=== PATIENT | female | born 1945 | race Caucasian/White ===

== ENCOUNTER 2016-07-14 13:13 | Emergency (ER) | payer OTHER ==
--- NOTE | 2016-07-14 15:03 | PROVIDER DOCUMENTATION ---
HPI-Musculoskeletal Pain/Inj - GENERAL Source: patient - HX OF PRESENT ILLNESS-MUSKULOSKELTAL Quality of Pain: reports: aching Severity in ED: mild Onset/Duration: 4 days ago Timing: still present, intermittent Modifying Factors: improves with: nothing Any recent injury?: No Locality of Occurance: Home Similar Symptoms Previously?: Yes Recently seen or treated by another doctor?: No - FALL INJURY Location of Pain/Injury: reports: none - BACK & NECK PAIN/INJURY Back/Neck Pain Location: reports: C-spine Back/Neck Pain Radiation: denies: headache, shoulders, arm(s), Buttocks, Upper Legs, Lower Legs, Feet Context / Method of Injury: reports: unknown Associated Symptoms: reports: denies symptoms History of Chronic Neck or Back Pain?: Yes (chronic neck pain ) <Alma Kaiser - Last Filed: 07/14/16 14:59> <James Stahl - Last Filed: 07/14/16 15:26> - GENERAL Chief Complaint: Neck Pain Stated Complaint: NECK PAIN Time Seen by Provider: 07/14/16 14:10 - HX OF PRESENT ILLNESS-MUSKULOSKELTAL Nature of Presenting Problem: Pt is 70 y/o F presents to the ED with neck pain. Pt states the pain is chronic. Pt states pain worsened 4 days ago. Pt denies injury or trauma. (Alma Kaiser) Review of Systems - Adult - REVIEW OF SYSTEMS - ADULT Constitutional: denies: chills, fever Eyes: denies: blurred vision, double vision Ears, Nose, Mouth & Throat: denies: ear pain, nose pain, throat pain Cardiovascular: reports: irregular heart rate (tachy). denies: chest pain, heart murmur Respiratory: denies: cough, shortness of breath, wheezing Gastrointestinal: denies: abdominal pain, diarrhea, nausea, vomiting Genitourinary: denies: dysuria, hematuria Musculoskeletal: reports: neck pain. denies: bone pain, joint pain Integumentary: denies: hives, itching Neurological: denies: dizziness/vertigo, headache/migraines Psychiatric: reports: no symptoms reported Endocrine: reports: no symptoms reported Hematologic/Lymphatic: reports: no symptoms reported Allergic/Immunologic: reports: no symptoms reported All Other Systems: Reviewed and Negative <Alma Kaiser - Last Filed: 07/14/16 14:59> Past History - Adult - PAST MEDICAL HISTORY-ADULT Review of Records: reports: Nursing Assessment Review, Medications Reviewed, Social history reviewed & non-contributory. Major Childhood Illnesses: reports: denies history Cardiovascular: reports: HTN, hyperlipidemia Respiratory: reports: COPD Gastrointestinal: reports: denies history Obstetrical/Gynecological: reports: denies history Genitourinary: reports: denies history Musculoskeletal: reports: denies history Neurological: reports: denies history Endocrine/Immune: reports: Diabetes Other Conditions: reports: denies history - PRIOR SURGERIES/PROCEDURES Surgical/Procedure History: reports: tonsillectomy - IMMUNIZATION STATUS Childhood Immunizations: See Nurse Assessment Flu Vaccine: See Nurse Assessment - FAMILY HISTORY Family History: reviewed, not pertinent - SOCIAL HISTORY Smoking: quit less than 1 year, cigarettes Substance Use: denies Living Situation: family <Alma Kaiser - Last Filed: 07/14/16 14:59> Physical Exam-Injury Related - Physical Exam-Injury Related Initial Vital Signs Reviewed: Yes General Appearance: appears well, alert, no apparent distress Eyes: PERRL/EOMI, pink conjunctivae, fundi clear, no AV nicking Head, Ears, Nose, Mouth & Throat: normocephalic/atraumatic, moist mucous membranes, normal ENT inspection, TMs normal, pharynx normal Neck: full range of motion, supple, normal inspection, tender lateral Respiratory: chest non-tender, lungs clear, normal breath sounds, no pleuratic chest pain, no respiratory distress, no accessory muscle use Cardiovascular: normal peripheral pulses, no edema, no gallop, no JVD, no murmur , tachycardia Abdominal Exam: normal bowel sounds, non tender, soft, no organomegaly, no pulsatile mass Lymphatic: no adenopathy Back Exam: normal inspection, no CVA tenderness, no vertebral tenderness Extremity: normal range of motion, non-tender, normal gait, normal inspection, no pedal edema Integumentary: normal color, warm/dry 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, grossly normal, no motor/sensory deficits Psych/Mental Status: normal mood/affect, normal thought content, normal thought process, oriented x 3 <Alma Kaiser - Last Filed: 07/14/16 14:59> Progress <Alma Kaiser - Last Filed: 07/14/16 14:59> <James Stahl - Last Filed: 07/14/16 15:26> - PLAN OF CARE/RESULTS Progress/Plan/Lab Results: Vital Signs - 24 hr 07/14/16 13:18 Temperature 97.9 F Pulse Rate 106 H Respiratory 18 Rate Blood Pressure 152/88 O2 Sat by Pulse 98 Oximetry (Alma Kaiser) Departure <Alma Kaiser - Last Filed: 07/14/16 14:59> - Departure Time of Disposition Order: 15:25 Certified Medical Emergency: Urgent <James Stahl - Last Filed: 07/14/16 15:26> - Departure DIAGNOSIS: Neck muscle spasm, Fibromyalgia Disposition: HOME 01 Condition: Good Additional Instructions: Continue taking your current medications. Follow up with your primary care provider. ED Follow Up Instructions: You have been treated by a care provider in the Emergency Department. These instructions are being provided to you so you can have an understanding of how to care for yourself upon discharge. Upon discharge from the Emergency Department, you are responsible for making arrangements for follow-up care by a physician of your choice. Take all prescribed medications as directed. Return to the Emergency Department immediately for any new or worsening symptoms. You may call the Physician Referral phone number at [phone] to obtain a list of Physicians who are taking new patients. Referrals: Terrence Amos MD [Primary Care Provider] - Attestation - Scribe Verification/Attestation Scribe:: Alma Kaiser Acting as Scribe for:: James Stahl Scribe documention review:: This chart was documented by a scribe and accurately reflects the service the provider performed and the decisions made by the provider. <Alma Kaiser - Last Filed: 07/14/16 14:59> - Physician/ JACINTO Attestation Patient care was provided by Advanced Practice Provider:: Yes Advanced Practice Provider:: James Stahl Advanced Practice Provider documentation review:: The Mid-level provider documentation, treatment plan and medical decision making was reviewed by the physician who agrees with all treatment and medical decision making by the P. <James Stahl - Last Filed: 07/14/16 15:26> Physician Attestation
[2016-07-14] MEDS ORDERED: MORPHINE IM ONE (15:23)
[2016-07-14] MEDS ORDERED: ZOFRAN IM ONE (15:23)
[2016-07-14] MEDS ORDERED: NORFLEX IM ONE (15:23)
[2016-07-14 15:33] VITALS: BP 147/90
== END 2016-07-14 16:10 | disposition home or self-care (01) ==
LOC: P.ED 13:13
DX: M62.838 Other muscle spasm (principal); M79.7 Fibromyalgia; M54.2 Cervicalgia; R00.0 Tachycardia, unspecified; I10 Essential (primary) hypertension; E78.5 Hyperlipidemia, unspecified; J44.9 Chronic obstructive pulmonary disease, unspecified; E11.8 Type 2 diabetes mellitus with unspecified complications; Z87.891 Personal history of nicotine dependence
CPT/HCPCS: 96372; J2270; J2360; J2405

== ENCOUNTER 2019-02-23 08:49 | Inpatient (IN) ==
[2019-02-23] MEDS ORDERED: APRESOLINE IV ONE ×2 (09:12→11:18)
[2019-02-23] MEDS ORDERED: DILAUDID IV ONE ×2 (09:12→13:19)
[2019-02-23] MEDS ORDERED: ZOFRAN IV ONE (09:12)
[2019-02-23 09:17] LABS: BASO# 0.05 X1000 (0.0-0.2); BASO% 0.5 % (0.0-0.8); EOS# 0.03 X1000 (0.0-0.7); EOS% 0.3 % (0.0-10.0); HEMATOCRIT 50.2 % (37.0-47.0); HEMOGLOBIN 17.4 g/dL (12.0-16.0); IMM GRAN# 0.03 X1000 (0.0-0.04); IMM GRAN% 0.3 % (0.0-0.5); LYMPH# 2.64 X1000 (1.2-3.4); LYMPH% 24.4 % (20.5-51.1); MCH 30.4 PG (27-31); MCHC 34.7 g/dL (33-37); MCV 87.8 FL (81-99); MONO# 0.75 X1000 (0.11-0.59); MONO% 6.9 % (1.7-9.3); MPV 9.5 FL (7.4-10.4); NEUT# 7.32 X1000 (1.4-6.5); NEUT% 67.6 % (42.2-75.2); PLT 250 X1000 (130-400); RBC 5.72 XMIL (4.2-5.4); RDW 13.3 % (11.5-14.5); WBC 10.82 X1000 (4.8-10.8)
[2019-02-23 09:54] LABS: AGAP 14; ALBUMIN 4.9 g/dL (3.5-5.0); ALKALINE PHOSPHATASE 175 U/L (32-104); BUN 15 mg/dL (8-22); CALCIUM 10.8 mg/dL (8.8-10.2); CHLORIDE 93 mmol/L (98-107); COSMO 267; CREATININE 0.7 mg/dL (0.5-0.9); ESTIMATED GFR > 60; GLUCOSE 170 mg/dL (70-104); GOT 26 U/L (10-30); GPT 21 U/L (10-36); LIPASE 67 U/L (13-60); POTASSIUM 4.4 mmol/L (3.5-5.1); SODIUM 131 mmol/L (136-145); TCO2 24 mmol/L (25-35); TOTAL PROTEIN 9.7 g/dL (6.3-8.3)
[2019-02-23 10:11] LABS: BILIRUBIN URINE NEGATIVE (NEGATIVE); BLOOD URINE 1+ (NEGATIVE); CLARITY VERY CLOUDY (CLEAR); COLOR YELLOW; GLUCOSE URINE NEGATIVE (NEGATIVE); KETONE URINE 2+(Moderate) mg/dL (NEGATIVE); LEUKOCYTES URINE 1+ (NEGATIVE); NITRITE URINE NEGATIVE (NEGATIVE); PH URINE 6.5; PROTEIN URINE 2+(100 mg/dL) mg/dL (NEGATIVE); SP GRAVITY URINE 1.015; UROBILINOGEN URINE 1 mg/dL
[2019-02-23 10:28] LABS: URINE BACTERIA 1+ /HFP; URINE CAST GRANULAR PRESENT /LPF; URINE EPITHELIAL CELLS >10 /HPF (<10); URINE RBC <10 /HPF (<10); URINE SOURCE CATH
--- NOTE | 2019-02-23 11:18 | Diag Imaging Result Doc PS360 ---
EXAM: CT ABD/PELVIS W/IV CONT ONLY HISTORY: abdo pain TECHNIQUE: This exam was performed using automated exposure control, adjustment of mA or kV according to patient size, and/or use of iterative reconstruction technique. COMPARISON: 07/03/2013 FINDINGS: Lung bases: Unremarkable. Hepatobiliary: Normal liver attenuation. Marked gallbladder distention 8 x 5 cm. Is trace pericholecystic. Dilated extrahepatic bile duct to 1 cm. No intrahepatic biliary ductal dilatation is identified. Dilated pancreatic duct to 4.5 mm. No calcified gallstones are seen. There is abrupt termination of the dilated intrapancreatic common bile duct which may indicate a small pancreatic head mass or common duct stone. There is a stable 1.5 cm hypodensity right lobe liver. No suspicious liver masses are appreciated. Anterior upper abdominal wall mesh is noted and compatible with prior hernia repair. Adrenal glands/Spleen: Normal size and enhancement. No cysts or solid masses are appreciated. Kidneys: No nephrolithiasis or hydronephrosis is appreciated. Normal bilateral enhancement. Bilateral cortical cysts. No suspicious masses. Retroperitoneum: Normal caliber aorta. Marked calcific atherosclerotic disease. No lymphadenopathy. Bowel/Mesentery: Normal caliber small and large bowel loops. No evidence for obstruction. No bowel wall thickening, pneumatosis, or inflammatory change. No mesenteric lymphadenopathy is appreciated. There is moderate colonic stool burden. Appendix: Normal. No evidence for acute appendicitis. No pneumoperitoneum is identified. No ascites is identified. Pelvis: Reproductive organs show no acute abnormality. Urinary bladder is unremarkable. No lymphadenopathy is identified. There are no inflammatory changes. There are postsurgical changes lumbar spine with transpedicular fusion L4/L5. No acute bony abnormality is demonstrated. IMPRESSION: 1.Markedly distended gallbladder with trace pericholecystic fluid. Dilated common bile duct and dilated pancreatic duct. Recommend abdominal ultrasound and MRCP if indicated. Possibilities include distal common bile duct or periampullary neoplasm. 2. Incidental findings as detailed above. Electronically signed by Genevieve Thomason 02/23/2019 11:15 AM
--- NOTE | 2019-02-23 12:22 | Diag Imaging Result Doc PS360 ---
EXAM: US GB < RUQ (LIMITED) HISTORY: abdo pain TECHNIQUE: Right upper quadrant ultrasound COMPARISON: CT performed earlier FINDINGS: Normal inferior vena cava. No abdominal aortic aneurysm. Nonspecific 1.7 cm complex nodule in the liver anteriorly. This is not identified on the recent CT. The common bile duct measures 9 mm. The gallbladder is overly distended measuring at least 5.5 x 11.8 cm. Increased renal echotexture to the right kidney. No hydronephrosis. No ascites in the right upper quadrant. Prominent pancreatic duct. No mass in the pancreatic head or body identified. The talus obscured. IMPRESSION: 1.Abnormal overly distended gallbladder 2.Increased renal echotexture which can be seen with medical renal disease 3.Nonspecific complex hepatic nodule Electronically signed by Tonny Schilling 02/23/2019 12:19 PM
[2019-02-23] MEDS ORDERED: ZOSYN 3.375 GM in NS 50 ML IV ONE (13:15)
--- NOTE | 2019-02-23 13:20 | PROVIDER DOCUMENTATION ---
This chart was entered by Terry Cao Scribe, acting as scribe for Pierre Zavala MD. HPI-Abdominal Pain/GI Problem - General Chief Complaint: N/V/D Stated Complaint: ABD PAIN Time Seen by Provider: 02/23/19 08:58 Source: patient Allergies/Adverse Reactions: Patient Allergies Allergy/AdvReac Type Severity Reaction Status Date / Time No Known Allergies Allergy Verified 02/23/19 10:40 Home Medications: Home Medication List Medication Instructions Recorded Confirmed Last Taken Type Amlodipine Besylate 10 mg PO DAILY 02/23/19 02/23/19 Unknown History Aspirin 1 tab PO DAILY 02/23/19 02/23/19 Unknown History Bimatoprost [Lumigan] 1 drp BOTH EYES HS 02/23/19 02/23/19 Unknown History Brimonidine 0.1% Ophth Soln 1 drp BOTH EYES TID 02/23/19 02/23/19 Unknown History [Alphagan P 0.1% Ophth Soln] Cyclobenzaprine [Flexeril] 1 tab PO HS 02/23/19 02/23/19 Unknown History Gabapentin 600 mg PO HS 02/23/19 02/23/19 Unknown History Hydrocodone/Acetaminophen [Stanchfield 1 tab PO DAILY PRN 02/23/19 02/23/19 Unknown History 7.5-325 Tablet] Metformin HCl 500 mg PO BID 02/23/19 02/23/19 Unknown History Pantoprazole Sodium 40 mg PO DAILY 02/23/19 02/23/19 Unknown History - History of Present Illness-ABD Nature of Presenting Problems: 73 yof presents to the ed with c/o abdominal pain. pt states the onset symptoms started before the 10th. pt states " i have no idea how thid startd i just bend over every morning " pt states " epigastric discomfort and some LQ abdominal pa in." pt states " i didn't go to my pcp because i didn't think it would get this worse." pt states " I haven't been able to sleep for the past 2 nights, it hurts to turn on my side and get out of bed." pt states " im having to urinate a lot." pt is poor historian. Abdominal Pain Onset Location: reports: LUQ, LLQ, epigastric Pain Radiation: reports: no radiation Quality of Pain: reports: aching Severity in ED: reports: moderate Onset/Duration: reports: 4 days ago Timing: reports: still present Activities at Onset: reports: light activity Exposure to sick contacts?: No Modifying Factors: worse with: movement, rest Associated Symptoms: denies: diarrhea, fever/chills, shortness of breath, vomiting Last BM: unsure Dark Stools Present?: reports: none noticed Rectal Bleeding: reports: none Rectal Pain: reports: none Emesis Description: reports: none Bruising or Bleeding Gums?: No Similar Symptoms Previously?: No Recently seen or treated by another doctor?: No Review of Systems - Adult - REVIEW OF SYSTEMS - ADULT Constitutional: denies: chills, fever Eyes: reports: no symptoms reported Ears, Nose, Mouth & Throat: reports: no symptoms reported Cardiovascular: reports: no symptoms reported Respiratory: denies: shortness of breath, wheezing Gastrointestinal: reports: see HPI, abdominal pain. denies: diarrhea, vomiting Genitourinary: reports: no symptoms reported Musculoskeletal: reports: no symptoms reported Integumentary: reports: no symptoms reported Neurological: denies: dizziness/vertigo, headache/migraines Psychiatric: reports: no symptoms reported Endocrine: reports: no symptoms reported Hematologic/Lymphatic: reports: no symptoms reported Allergic/Immunologic: reports: no symptoms reported All Other Systems: Reviewed and Negative Past History - Adult - PAST MEDICAL HISTORY-ADULT Review of Records: reports: Old Records Reviewed, Nursing Assessment Review, Medications Reviewed, Social history reviewed & non-contributory. Major Childhood Illnesses: reports: denies history Cardiovascular: reports: HTN, hyperlipidemia Respiratory: reports: COPD Gastrointestinal: reports: denies history Obstetrical/Gynecological: reports: denies history Genitourinary: reports: denies history Musculoskeletal: reports: denies history Neurological: reports: denies history Endocrine/Immune: reports: Diabetes Other Conditions: reports: denies history - PRIOR SURGERIES/PROCEDURES Surgical/Procedure History: reports: tonsillectomy - IMMUNIZATION STATUS Childhood Immunizations: See Nurse Assessment Flu Vaccine: See Nurse Assessment - FAMILY HISTORY Family History: reviewed, not pertinent - SOCIAL HISTORY Smoking: cigarettes, less than 1 pack/day Provider spent 3-5 mins advising pt. on dangers of tobacco.: Discussed manners to quit use, and f/u contacts for add'l counseling. Substance Use: denies Alcohol Use Frequency: never Living Situation: alone Physical Exam-General - PHYSICAL EXAM-ADULT Initial Vital Signs Reviewed: Yes - CONSTITUTIONAL General Appearance: appears well, alert, moderate distress, thin - EYES Eyes: PERRL/EOMI - HEAD, EARS, NOSE, MOUTH & THROAT HENMT: moist mucous membranes - NECK Neck: non-tender, full range of motion, supple, normal inspection - RESPIRATORY Respiratory: chest non-tender, lungs clear, normal breath sounds, no pleuratic chest pain, no respiratory distress, no accessory muscle use - CARDIOVASCULAR Cardiovascular: normal peripheral pulses, regular rate, rhythm, no edema, no gallop, no JVD, no murmur - CHEST (BREASTS) Chest/Breast: deferred - GASTROINTESTINAL (ABDOMEN) Abdominal Exam: normal bowel sounds, non tender, soft, no organomegaly, no pulsatile mass - GENITOURINARY Female Genitalia/Pelvic Exam: deferred Rectal Exam: deferred Hemoccult Exam: deferred - LYMPHATIC Lymphatic: no adenopathy - MUSCULOSKELETAL Back Exam: normal inspection, no CVA tenderness, no vertebral tenderness Extremity: normal range of motion, non-tender, normal gait, normal inspection, no pedal edema, no calf tenderness, normal capillary refill - SKIN Integumentary: normal color, normal turgor, warm/dry - NEUROLOGIC Neurologic: grossly normal, no motor/sensory deficits - PSYCHIATRIC Psych/Mental Status: normal mood/affect, normal thought content, normal thought process, oriented x 3, other (pt is poor historian.) Progress - PLAN OF CARE/RESULTS Progress/Plan/Lab Results: Vital Signs - 8 hr 02/23/19 08:51 Temperature 98.3 F Pulse Rate 86 Respiratory Rate 22 Blood Pressure 219/131 O2 Sat by Pulse Oximetry 98 Orders Category Date Time Status Saline Loc DIRECTED Care 02/23/19 09:05 Active NPO Diet 02/23/19 09:05 Active AMYLASE [CHEM] Stat Lab 02/23/19 09:05 Ordered CBC WITH ELECTRONIC DIFF [HEME] Stat Lab 02/23/19 09:05 Ordered COMPREHENSIVE METABOLIC PANEL [CHEM] Stat Lab 02/23/19 09:00 Ordered LIPASE [CHEM] Stat Lab 02/23/19 09:[address] W/POSS RFLX CULT [URINALYSIS] Stat Lab 02/23/19 09:05 Uncollected Result Diagrams: 02/23/19 09:00 02/23/19 09:00 - REASSESSMENT Reassessment #1 Time Reassessed: 10:42 (pt is in bed resting) - CT/MRI 1 CT Study: Abdomen, Pelvis Impression: See EMR Report (EXAM: CT ABD/PELVIS W/IV CONT ONLY HISTORY: abdo pain TECHNIQUE: This exam was performed using automated exposure control, adjustment of mA or kV according to patient size, and/or use of iterative reconstruction technique. COMPARISON: 07/03/2013 FINDINGS: Lung bases: Unremarkable. Hepatobiliary: Normal liver attenuation. Marked gallbladder distention 8 x 5 cm. Is trace pericholecystic. Dilated extrahepatic bile duct to 1 cm. No intrahepatic biliary ductal dilatation is identified. Dilated pancreatic duct to 4.5 mm. No calcified gallstones are seen. There is abrupt termination of the dilated intrapancreatic common bile duct which may indicate a small pancreatic head mass or common duct stone. There is a stable 1.5 cm hypodensity right lobe liver. No suspicious liver masses are appreciated. Anterior upper abdominal wall mesh is noted and compatible with prior hernia repair. Adrenal glands/Spleen: Normal size and enhancement. No cysts or solid masses are appreciated. Kidneys: No nephrolithiasis or hydronephrosis is appreciated. Normal bilateral enhancement. Bilateral cortical cysts. No suspicious masses. Retroperitoneum: Normal caliber aorta. Marked calcific atherosclerotic disease. No lymphadenopathy. Bowel/Mesentery: Normal caliber small and large bowel loops. No evidence for obstruction. No bowel wall thickening, pneumatosis, or inflammatory change. No mesenteric lymphadenopathy is appreciated. There is moderate colonic stool burden. Appendix: Normal. No evidence for acute appendicitis. No pneumoperitoneum is identified. No ascites is identified. Pelvis: Reproductive organs show no acute abnormality. Urinary bladder is unremarkable. No lymphadenopathy is identified. There are no inflammatory changes. There are postsurgical changes lumbar spine with transpedicular fusion L4/L5. No acute bony abnormality is demonstrated. IMPRESSION: 1.Markedly distended gallbladder with trace pericholecystic fluid. Dilated common bile duct and dilated pancreatic duct. Recommend abdominal ultrasound and MRCP if indicated. Possibilities include distal common bile duct or periampullary neoplasm. 2. Incidental findings as detailed above. Electronically signed by Genevieve Thomason 02/23/2019 11:15 AM 02/23/19 4773 Interpreting Physician: Genevieve Thomason MD Dictated Date/Time: 02/23/19 1100 cc: Pierre Zavala MD; None,PCP) - ULTRASOUND (By Radiology) 1 US Study: Abdomen Impression: See EMR Report (EXAM: US GB < RUQ (LIMITED) HISTORY: abdo pain TECHNIQUE: Right upper quadrant ultrasound COMPARISON: CT performed earlier FINDINGS: Normal inferior vena cava. No abdominal aortic aneurysm. Nonspecific 1.7 cm complex nodule in the liver anteriorly. This is not identified on the recent CT. The common bile duct measures 9 mm. The gallbladder is overly distended measuring at least 5.5 x 11.8 cm. Increased renal echotexture to the right kidney. No hydronephrosis. No ascites in the right upper quadrant. Prom inent pancreatic duct. No mass in the pancreatic head or body identified. The talus obscured. IMPRESSION: 1.Abnormal overly distended gallbladder 2.Increased renal echotexture which can be seen with medical renal disease 3.Nonspecific complex hepatic nodule Electronically signed by Tonny Schilling 02/23/2019 12:19 PM 02/23/19 1219 Interpreting Physician: Tonny Schilling MD Dictated Date/Time: 02/23/19 1216 cc: Pierre Zavala MD; None,PCP) - CONSULTS/PCP/HOSPITALIST Notification #1 *Consult/PCP/Hospitalist*: Dr Ojeda Time Discussed: 13:17 Reason/Comments: asked for hospitalist to admit Consult Disposition: Admit #2 Consult: [facility] [employer] [facility] for Hospitalist Time Discussed: 13:18 Consult Disposition: Will see in ED, Admit Departure - Departure Date of Disposition Decision: 02/23/19 Time of Disposition Decision: 13:18 DIAGNOSIS: Tobacco abuse disorder, Abdominal pain, Abnormal findings on diagnostic imaging of liver and biliary tract Disposition: ADMITTED INPATIENT 09 Certified Medical Emergency: Emergent Condition: Stable Referrals and Follow-Ups: None,PCP [Primary Care Provider] - - Critical Care Note This patient required my direct & personal management of CC.: No Attestation - Physician/ JACINTO Attestation Patient care was provided by Advanced Practice Provider:: No The physician spent face to face time with patient:: Yes Advanced Practice Provider documentation review:: Supervising physician onsite and consulted in the evaluation and care of this patient. The physician did have a face to face encounter with the patient. This chart was documented by the indicated scribe, (Terry Cao, Betoiblizzette) and accurately reflects the services I performed and decisions made by me, Pierre Zavala MD, as attested by the provider's signature.
[2019-02-23] MEDS ORDERED: DUONEB (A & A) INH PRN (14:04)
--- NOTE | 2019-02-23 14:48 | HISTORY AND PHYSICAL ---
CHIEF COMPLAINT: Right upper quadrant pain and nausea. HISTORY OF PRESENT ILLNESS: This is a 73-year-old female with a history of hepatitis C, COPD, diabetes mellitus, and hypertension. She presented to the emergency room complaining of 4 days of right upper quadrant pain with nausea. She denied any vomiting or diarrhea. She did state that the pain increased at night after eating a large meal. PAST MEDICAL HISTORY: 1. Hepatitis C, status post 1 month of Mavyret. 2. Chronic obstructive pulmonary disease. 3. Diabetes mellitus. 4. Hyperlipidemia. 5. Hypertension. 6. Glaucoma. PAST SURGICAL HISTORY: Tonsillectomy and hernia repair. SOCIAL HISTORY: She smokes. She denies any alcohol or illicit drug use. ALLERGIES: No documented allergies. HOME MEDICATIONS: A list will be obtained by the nursing staff. Once verified, we will review and restart as is appropriate. REVIEW OF SYSTEMS: Discussed with patient with pertinent positives as stated in the HPI. She denied any syncope, dizziness, chest pain, palpitations, any black or bloody vomitus or stools, shortness of breath, cough, fever, chills, any hematuria, dysuria, frequency, urgency. PHYSICAL EXAMINATION: GENERAL: This is a 73-year-old female who is lying on the stretcher in the emergency room, sedated after having Dilaudid, in no distress. VITAL SIGNS: Blood pressure is 135/83, with a heart rate of 108, respirations 16, temperature is 97.6 degrees, with O2 saturations 93 to 96 percent on 2 L nasal cannula. EYES: Pupils are equal, round, react to light. Surrounding skin and sclerae are red. HENT: Head is normocephalic, atraumatic. Mucous membranes are moist. NECK: Supple with trachea midline. CARDIOVASCULAR: Regular rate and rhythm. S1 and S2 are appreciated. No murmurs. She has no lower extremity edema. Peripheral pulses are palpable x4 extremities. PULMONARY: Breath sounds are clear with no increased work of breathing noted. Chest rises and falls symmetrically with respiration. GASTROINTESTINAL: Abdomen is soft, with generalized tenderness. Nondistended, with bowel sounds in all 4 quadrants. NEUROLOGIC: She is sedated after Dilaudid but she is oriented. SKIN: Warm and dry. LABORATORY DATA: WBC is 10.8, with hemoglobin 17.4, hematocrit 50.2, and platelets of 250,000. Sodium 131, potassium 4.4, BUN 15, creatinine 0.7, with a glucose of 170, calcium is 10.8. Lipase is 67. Urinalysis is consistent with contamination with greater than 10 epithelial cells, 10 to 20 microscopic white blood cells, 1+ bacteria. A CT of the abdomen and pelvis with IV contrast reveals a markedly distended gallbladder with trace pericholecystic fluid, dilated common bile duct and dilated pancreatic duct. Abdominal ultrasound was recommended with possibilities including distal common bile duct or periampullary neoplasm. Abdominal ultrasound, abnormally overdistended gallbladder, increased renal echotexture which can be seen with medical renal disease, nonspecific complex hepatic nodule. ASSESSMENT AND PLAN: 1. Right upper quadrant pain. CT and ultrasound results as above. Dr. Layo Ojeda has been notified per the emergency room physician. nothing per oral Dilaudid for pain, and transfer her to [facility] to be followed by general surgery. 2. Nausea. Zofran. Nothing per oral. 3. History of chronic obstructive pulmonary disease. DuoNeb every 4 hours as needed for wheezing. 4. Diabetes mellitus. Pattern blood glucose with sliding scale insulin. 5. Hypertension. identify her home medications. 6. Elevated lipase. recheck amylase and lipase in the morning. 7. Glaucoma. continue her home medications. CBC with differential, CMP, amylase, and lipase in the morning. 9. Further treatments pending hospital course. Plan was discussed with Dr. Felton. Dictated by RAINE Odonnell for Rey Fleton MD cc: RAINE Odonnell MD [facility]
[2019-02-23] MEDS ORDERED: ALPHAGAN 0.2% OPHTH SOLN BOTH EYES SCH (17:00)
--- NOTE | 2019-02-23 17:04 | PROGRESS NOTE ---
DATE: 02/23/2019 SUBJECTIVE: The patient has no major complaints. She has no major issues. She complained with pain and hip pain and nausea, vomiting, and she has a diagnosis of hepatitis C, so she has been getting treatment with Dr. Jarrod hathaway for the active hepatitis C. Abdominal exam reveals right upper quadrant tenderness. IMAGING: Shows periampullary obstruction and large gallbladder with possible cholecystitis and then a distal enlarge dilated common bile duct. Ultrasound shows overly distended gallbladder, but it does not clearly talk about stones. PLAN: In any case she will be admitted for possible acute cholecystitis, although she may have obstruction. We will get a surgical consult, GI consult, antibiotics and follow clinically. Get a GI opinion as well because she may need an ERCP to better delineate her bile duct. cc: Rey Felton MD
[2019-02-23] MEDS: NS 1,000 ML IV SCH (18:23)
[2019-02-23] MEDS: DILAUDID IV PRN ×2 (18:23→23:42)
[2019-02-23] MEDS: HUMALOG (PARKWAY) SUBQ SCH (18:48)
--- NOTE | 2019-02-23 19:07 | PROGRESS NOTE ---
DATE: 02/23/2019 SUBJECTIVE: Ms. Irene is a 73-year-old, does not have primary care physician, has a history of hepatitis C, COPD, diabetes mellitus, hypertension, presented to the emergency room with a 4-day history, actually longer in retrospective, of epigastric pain shortly after eating but recently had right upper quadrant pain. Denied any vomiting or diarrhea. PAST MEDICAL HISTORY: 1. Hepatitis C. I think she is status post 1 month of Mavyret. 2. COPD. 3. Diabetes mellitus. 4. Hyperlipidemia. 5. Hypertension. 6. Glaucoma. PAST SURGICAL HISTORY: Tonsillectomy and hernia repair. IMAGING: CT and ultrasound over distended gallbladder, increase in echotexture and suspicion for cholecystitis was sent over to [facility]. Dr. Ojeda is evaluating. Ultrasound shows a very distended gallbladder and periampullary obstruction, large gallbladder, possible cholecystitis, distal large dilated common bile duct. REVIEW OF ORDERS: I do not see anything to modify. cc: Clark Nina MD
--- NOTE | 2019-02-23 20:09 | GENERAL SURGERY CONSULTATION ---
DATE: 02/23/2019 REASON FOR CONSULTATION: Gallstones, possible gallstone pancreatitis. CHIEF COMPLAINT: Abdominal pain. HISTORY OF PRESENT ILLNESS: A 73-year-old female multiple medical issues. She has had several days of abdominal discomfort in the setting of chronic pain. She has also undergone recently therapy for chronic hepatitis C overseen by Dr. Garay. She denies any jaundice. She has had some low-grade fevers associated nausea, vomiting, came the ER where imaging was obtained that showed a dilated gallbladder, prominent bile duct 9 mm and even a prominent pancreatic duct. There is no clear pancreatic mass noted on her CT scan that did have IV contrast. MEDICAL HISTORY: Includes hepatitis C, fibromyalgia, osteoporosis, hypertension, diabetes and tobacco abuse, diabetes and glaucoma. SURGICAL HISTORY: She has had a ventral hernia repair by Dr. Flores as well as numerous back operations starting at a very young age. SOCIAL HISTORY: Currently half pack a day previously heavier. No current alcohol. She does have a history of IV drug abuse in the past. REVIEW OF SYSTEMS: Ten point review of systems negative other than mentioned HPI. FAMILY HISTORY: Negative for GI malignancy. OBJECTIVE: She is afebrile. Pulse been low 100s, blood pressure 139/86, oxygen saturation 98%, she is 110 pounds, 5 foot 2.General: She is chronically ill-appearing female very thin. HEENT: No scleral icterus. No cervical mass. Cardiovascular: Normal rate. Pulmonary: No increased work of breathing. Abdomen: Soft but she is tender throughout her upper abdomen. There is upper midline incision with no palpable hernias. Psychiatric: She is anxious. Neurologic: Generalized weakness but no gross deficits. Lymphatic: No cervical, axillary, or inguinal adenopathy. Peripheral vascular: Well-perfused. LAB: White count 10, hematocrit is 50. Her creatinine 0.7, bilirubin is normal, AST, ALT are normal, alkaline phosphatase mildly elevated, lipase is mildly elevated at 67. Urinalysis does have some white blood cells but negative for nitrites. I reviewed her imaging both abdominal ultrasound, CT scan. ASSESSMENT AND PLAN: A 73-year-old female with apparent cholecystitis, possible distal bile duct obstruction although her liver function tests are normal. Given the findings and her symptoms and her history worried she could have passed a stone in the common duct and has some degree of acute or chronic cholecystitis. She also has some indication of pancreatitis. We will repeat her labs in the morning, have her tentatively posted . If her lipase has normalized with hydration then will proceed. Recommend keeping her NPO otherwise we may observe if her pancreatitis seems to be worsening. We discussed risk of bleeding, conversion to open which I think she is high risk for given the appearance of her gallbladder, previous upper midline incision, damage surrounding structures, need for further procedure. She understands all this and consents. Will keep her on Zosyn and NPO with IV fluids. cc: Bibi Ojeda MD
[2019-02-23] MEDS: ZOSYN 3.375 GM in NS 50 ML IV SCH (20:50)
[2019-02-23] MEDS ORDERED: LUMIGAN 0.01% OPH SOLUTION BOTH EYES SCH (21:00)
[2019-02-24] MEDS: ZOSYN 3.375 GM in NS 50 ML IV SCH ×4 (02:45→21:16)
[2019-02-24] MEDS: DILAUDID IV PRN ×5 (02:49→22:27)
[2019-02-24] MEDS: NS 1,000 ML IV SCH ×3 (02:53→18:23)
[2019-02-24] MEDS: HUMALOG (PARKWAY) SUBQ SCH (04:43)
[2019-02-24 07:07] LABS: BASO# 0.02 X1000 (0.0-0.2); BASO% 0.2 % (0.0-0.8); EOS# 0.01 X1000 (0.0-0.7); EOS% 0.1 % (0.0-10.0); HEMATOCRIT 46.4 % (37.0-47.0); HEMOGLOBIN 15.6 g/dL (12.0-16.0); IMM GRAN# 0.02 X1000 (0.0-0.04); IMM GRAN% 0.2 % (0.0-0.5); LYMPH# 2.52 X1000 (1.2-3.4); LYMPH% 19.2 % (20.5-51.1); MCH 30.8 PG (27-31); MCHC 33.6 g/dL (33-37); MCV 91.5 FL (81-99); MONO# 1.24 X1000 (0.11-0.59); MONO% 9.4 % (1.7-9.3); MPV 10.1 FL (7.4-10.4); NEUT# 9.34 X1000 (1.4-6.5); NEUT% 70.9 % (42.2-75.2); PLT 231 X1000 (130-400); RBC 5.07 XMIL (4.2-5.4); RDW 13.7 % (11.5-14.5); WBC 13.15 X1000 (4.8-10.8)
[2019-02-24 07:10] LABS: INR 1.14; PROTIME 14.8 Seconds (11.0-16.0); PTT 30.7 Seconds (22.3-41.8)
[2019-02-24 07:53] LABS: ALB/GLOB RATIO 1.2; CALCIUM 8.5 mg/dL (8.8-10.2); POTASSIUM 4.3 mmol/L (3.5-5.1); TOTAL BILIRUBIN 0.54 mg/dL (0.20-1.00); TOTAL PROTEIN 7.4 g/dL (6.3-8.3)
[2019-02-24] MEDS: HUMALOG SUBQ SCH ×4 (07:54→21:17)
[2019-02-24] MEDS: ALPHAGAN 0.2% OPHTH SOLN BOTH EYES SCH ×3 (08:24→18:02)
--- NOTE | 2019-02-24 09:01 | Diag Imaging Result Doc PS360 ---
EXAM: CHEST-1 VIEW 02/24/2019 HISTORY: positive sepsis screen TECHNIQUE: AP portable at 0849 COMMENT: There is blunting of the right costophrenic angle which was not the case on 09/11/2018. There is also thickening of the lateral inferior pleura on the right. The heart size and pulmonary vascularity are stable in appearance. IMPRESSION: Atelectasis versus pneumonia in the right base with pleural thickening versus loculated effusion on the right. Electronically signed by Cem Cox 02/24/2019 8:59 AM
--- NOTE | 2019-02-24 12:05 | PROGRESS NOTE ---
DATE: 02/24/2019 SUBJECTIVE: Patient has no major complaints, except pain. She has nausea. She is awake and alert. Her vitals triggered a sepsis protocol which she certainly could have sepsis related to her gallbladder distention. It is not clear she has cholelithiasis, but her gallbladder is extremely distended with some wall thickening and some pericholecystic fluid. She may have obstruction at the level of the neck of the gallbladder, possibly in the common bile duct. I think she will need an intraoperative cholangiogram. In any case patient is stabilized, and she will go. OBJECTIVE: Vital Signs: Blood pressure 175/80, heart rate 97, respiratory rate 20, temperature 98.1 degrees. Cardiovascular: Regular rate and rhythm. Pulmonary: Bilateral breath sounds. Clear to auscultation. GI: Soft. She is diffusely tender throughout her abdomen, no rebound or guarding, mostly in her right and then left upper quadrants. LABS: White count is up to 13, H and H 15 and 46, which is down from 17 and 50, platelets 231. BUN and creatinine 25 and 1, sugar 135, lipase up a little bit at 84. PROBLEM LIST: 1. Obstructive gallbladder with possible cholecystitis, possible choledocholithiasis. She is on antibiotics. Plan is for laparoscopic cholecystectomy today. She may need endoscopic retrograde cholangiopancreatography depending on intraoperative cholangiogram findings during surgery, which I anticipate is today. 2. Hepatitis C. She is on Mavyret and followed by Dr. Garay. I believe Gastroenterology has been consulted. She has seen Dr. Garay in the past. 3. Early sepsis. She has met sepsis protocol. She has gotten intravenous fluids. Heart rate appears to be stable. I do not think her lactate is elevated. I think when antibiotics and intraoperative cholangiogram is completed, she will be able to stabilize. 4. Hypertension is not completely controlled. We will need to reinitiate medications when stabilized. cc: Rey Felton MD
[2019-02-24] MEDS ORDERED: XYLOCAINE-MPF 2% ONE (14:03)
[2019-02-24] MEDS ORDERED: DIPRIVAN 1% ONE (14:03)
[2019-02-24] MEDS ORDERED: SENSORCAINE 0.5%-EPI 1:200,000 ONE (14:35)
[2019-02-24] MEDS ORDERED: SODIUM CHLORIDE 0.9% ONE (14:35)
[2019-02-24] MEDS ORDERED: LR 1,000 ML ONE (14:35)
[2019-02-24] MEDS ORDERED: FENTANYL ONE (15:24)
[2019-02-24] MEDS ORDERED: ZOFRAN ONE (15:36)
[2019-02-24] MEDS ORDERED: DECADRON ONE (15:36)
[2019-02-24] MEDS ORDERED: QUELICIN (DOSE) ONE (15:40)
[2019-02-24] MEDS ORDERED: STERILE WATER INJ. ONE (15:40)
[2019-02-24] MEDS ORDERED: NORCURON ONE (15:40)
[2019-02-24] MEDS ORDERED: LABETALOL (DOSE) IV ONE (17:00)
[2019-02-24] MEDS: MORPHINE ONE ×3 (17:13→17:25)
--- NOTE | 2019-02-24 17:49 | OPERATIVE NOTE ---
PROCEDURE DATE: 02/24/2019 SURGEON: Bibi Ojeda MD PREOPERATIVE DIAGNOSES: 1. Acute cholecystitis. 2. Possible gallstone pancreatitis. POSTOPERATIVE DIAGNOSES: 1. Acute cholecystitis. 2. Possible gallstone pancreatitis. 3. Cirrhosis. PROCEDURES PERFORMED: Laparoscopic cholecystectomy. ESTIMATED BLOOD LOSS: 500 mL. SPECIMENS: Gallbladder. DRAINS: Vitor. ANESTHESIA: General. INDICATION: This is a female who presented with epigastric abdominal discomfort. She has a history of hepatitis C, undergoing therapy for that, and a mildly elevated lipase. She had a dilated common bile duct. FINDINGS: There were nodular sclerotic changes to her liver. It was very enlarged. She had left lateral segment adhesions up to the previous midline mesh. She had a markedly distended gallbladder with thickened peritoneum overlying and purulent bile within. The cystic duct was foreshortened and closely abutted the common bile duct. OPERATIVE NOTE: Risks, benefits, and alternatives were discussed with the patient and she consented to the procedure, seen preoperatively. Surgical site was confirmed. She was taken to the operating room and placed in supine position. General anesthesia was induced without complication. All bony prominences were padded. Abdomen was prepped with chlorhexidine solution and draped in the usual fashion. After time-out, we made an midclavicular right upper quadrant incision, carrying it down through the muscle and fascia as this was away from her previous midline scar with known mesh. We entered the abdomen in an open controlled fashion, placed in a Kinza trocar. We then were able to place a 5 mm trocar right laterally and took down some omental adhesions up to the mesh using a LigaSure device. We then were able to place a 5 mm trocar in the supraumbilical location, an 11 mm trocar in the infraumbilical location, and then ultimately added another 5 mm trocar in the left upper quadrant. The left lateral segment of the liver prohibited our access to the gallbladder, but we were able to decompress the gallbladder, retract it cephalad, and start laterally progressing medially. We stripped down the peritoneum overlying the infundibulocystic junction. We could visualize the common bile duct. It was prominent. It was medial, but the cystic duct was furled on this but we were able to retract this down to the right, it safely, but due to the distortion and our unusual port placement, we were unable to perform a cholangiogram. As such, we will follow her LFTs and MRCP if indicated. We were able to establish a critical view. We did divide some branches off the cystic artery with the LigaSure device. The gallbladder was very friable. There was significant venous bleeding noted just from small veins consistent with portal hypertension, but we were able to triply clipped the cystic duct and divide it. We then began removing the gallbladder from the gallbladder fossa using a combination of blunt dissection and LigaSure dissection, protecting the liver itself, and the gallbladder was removed. There was an opening made in the top. There was some spillage of bile, but no stones. Placed it in an Endo Catch bag. We then copiously irrigated the abdomen. There were some venous branches bleeding from the bed of the liver itself, up well onto the dome portion of the gallbladder fossa, but through clips and hemostatic agents, we were able to obtain hemostasis. We irrigated copiously with a couple liters of fluid and placed a Vitor drain in the gallbladder fossa, brought it out through a lateral incision, and then suctioned all the remaining fluid. The remaining trocars were removed. The gallbladder was brought out through the umbilical incision which did have to be made larger to allow admittance, and we closed the fascia at all of the larger trocar sites with 0 Vicryl sutures. Skin was closed surgical clips. Dressing was applied. She was awoken and transferred to Recovery. I spoke with the family. cc: Bibi Ojeda MD
[2019-02-24] MEDS: LUMIGAN 0.01% OPH SOLUTION BOTH EYES SCH (21:19)
[2019-02-25] MEDS: PERIDEX MT SCH ×3 (01:00→21:21)
[2019-02-25] MEDS: ZOSYN 3.375 GM in NS 50 ML IV SCH ×4 (01:46→21:21)
[2019-02-25] MEDS: NS 1,000 ML IV SCH ×4 (04:27→21:22)
[2019-02-25] MEDS: DILAUDID IV PRN ×5 (04:32→17:56)
[2019-02-25 06:38] LABS: BASO# 0.01 X1000 (0.0-0.2); BASO% 0.1 % (0.0-0.8); HEMATOCRIT 36.4 % (37.0-47.0); IMM GRAN# 0.05 X1000 (0.0-0.04); IMM GRAN% 0.3 % (0.0-0.5); LYMPH% 9.5 % (20.5-51.1); MCV 94.1 FL (81-99); MONO# 1.35 X1000 (0.11-0.59); MONO% 7.1 % (1.7-9.3); MPV 9.9 FL (7.4-10.4); PLT 177 X1000 (130-400); RBC 3.87 XMIL (4.2-5.4); RDW 13.7 % (11.5-14.5); WBC 19.01 X1000 (4.8-10.8)
[2019-02-25] MEDS: HUMALOG SUBQ SCH ×4 (06:48→21:21)
[2019-02-25 07:22] LABS: ALB/GLOB RATIO 0.9; ALBUMIN 3.1 g/dL (3.5-5.0); DIRECT BILIRUBIN 0.2 mg/dL (0.00-0.20); TOTAL BILIRUBIN 0.47 mg/dL (0.20-1.00); TOTAL PROTEIN 6.5 g/dL (6.3-8.3)
[2019-02-25 07:24] LABS: AGAP 11; BUN 22 mg/dL (8-22); CALCIUM 7.7 mg/dL (8.8-10.2); CHLORIDE 106 mmol/L (98-107); COSMO 286; CREATININE 0.7 mg/dL (0.5-0.9); ESTIMATED GFR > 60; GLUCOSE 162 mg/dL (70-104); POTASSIUM 3.9 mmol/L (3.5-5.1); SODIUM 140 mmol/L (136-145); TCO2 23 mmol/L (25-35)
[2019-02-25] MEDS: ALPHAGAN 0.2% OPHTH SOLN BOTH EYES SCH ×3 (08:02→17:56)
--- NOTE | 2019-02-25 11:59 | Diag Imaging Result Doc PS360 ---
EXAM: MRI ABDOMEN W/WO CONTRAST 02/25/2019 HISTORY: rule out choledoch TECHNIQUE: Axial T2, water 3-D, in and out of phase T1 3-D, 3-D axial lava postcontrast and coronal T2 and water 3-D. COMMENT: The common bile duct and common hepatic duct are distended, the former measuring in excess of 12 mm in diameter. This changes to a string-like lumen abruptly at the last 12 mm or so, which was also the case on the CT of 02/23/2019. There is some slightly heterogeneous fluid seen in the right subphrenic space adjacent to the liver. The liver is markedly nodular in appearance consistent with cirrhosis. The pancreatic duct is slightly distended to over 3 mm. IMPRESSION: 1. 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 2. Heterogeneous free fluid in the subphrenic space. 3. Cirrhosis. Electronically signed by Cem Cox 02/25/2019 11:56 AM
--- NOTE | 2019-02-25 12:41 | GASTROENTEROLOGY CONSULTATION ---
DATE: 02/25/2019 REASON FOR CONSULT: Cholelithiasis. HISTORY OF PRESENT ILLNESS: Ms. Irene is a 73-year-old, female with a history of hepatitis C cirrhosis, COPD, diabetes, and hypertension, who presented to the ER complaining that she was having a right upper quadrant pain with nausea which has been going on for the last 4 days. She said that it all started on Saturday when she got up to check her blood sugars. She lost her balance in the bathroom and when she was trying to waste picker things which was underneath the cabinet, she felt like she had busted something and that brought her to the ER.She denied any vomiting or diarrhea and her pain increased after she ate. She had a cholecystectomy done yesterday. PAST MEDICAL HISTORY: Hepatitis C cirrhosi, COPD, diabetes, hyperlipidemia, hypertension, glaucoma. PAST SURGICAL HISTORY: Tonsillectomy and hernia repair. SOCIAL HISTORY: She is a smoker. Lives with her son. Denies any alcohol or illicit drugs. ALLERGIES: No known drug allergies. HOME MEDICATIONS: She takes amlodipine 5 mg 2 tablets daily, Flexeril 10 mg 1 tablet at bedtime, gabapentin 600 mg at bedtime, brimonidine 0.1% ophthalmic solution 1 drop in both eyes 3 times a day, Protonix 40 mg daily, aspirin 325 mg 1 tablet daily, metformin 500 mg twice a day, Lumigan 2.5 mm 1 drop in both eyes at bedtime, and Bushnell 7.5/325 mg 1 tablet daily p.r.n. FAMILY HISTORY: No significant GI malignancies. REVIEW OF SYSTEMS: As per HPI. Otherwise, a 12-point review of systems is negative. PHYSICAL EXAMINATION: Vital Signs: Temperature 98.9, pulse is 100, respirations 18, blood pressure 129/73, oxygen saturation is 92% on room air. Her weight is 109.5 pounds. BMI is 20.1 kg/m2. General: She is alert, oriented x3, lying in bed, complaining of abdominal pain. HEENT: Pale conjunctivae. No icterus. PERRL. Neck: Supple. Lungs: Clear to auscultation in anterior and posterior pope. Cardiovascular: Regular rate and rhythm. No murmurs, rubs, or gallops heard on auscultation. Abdomen: Soft, tender, distended. She has a midline incision, on the right quadrant and in the lower quadrant. She has a ÓSCAR drain. Active bowel sounds heard in all 4 quadrants. Extremities: No cyanosis, clubbing, or edema. Pedal pulses 2+ present. Neurological: Alert, oriented x3. Nonfocal. Cranial nerves 2-12 grossly intact. LABS: WBCs 19.01, RBCs 3.87, hemoglobin 12.0, hematocrit is 36.4, platelet count is 177,000. Sodium is 140, potassium is 3.9, chloride 106, carbon dioxide 23, anion gap is 11, BUN is 22, creatinine is 0.7. AST 60, ALT is 41. Her plasma lactate is 2.8. Urinalysis on 02/23/2019 showed clarity was cloudy, 2+ protein, 2+ ketones, and 1+ WBCs. Chest x-ray showed atelectasis versus pneumonia in the right base with pleural thickening versus loculated effusion on the right. Abdominal ultrasound showed abnormal overly-distended gallbladder and increased renal echotexture which can be seen with medical renal disease. Nonspecific complex hepatic nodules. CT of the abdomen and pelvis showed markedly distended gallbladder with trace pericholecystic fluid. Dilated common bile duct and dilated pancreatic duct. Distal common bile duct or periampullary neoplasm. IMPRESSION: 1. Abdominal pain. 2. Nausea and vomiting. 3. Chronic obstructive pulmonary disease. 4. Diabetes. 5. Hypertension. 6. Glaucoma. 7. Gallbladder disease. 8. Hepatitis C on Mavyret 9. 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 The patient had a gallbladder surgery done yesterday. She has incisions -midline, right quadrant and the lower quadrant of her abdomen. She has a ÓSCAR drain. The patient has hepatitis C and is on Mavyret. We have asked the patient to continue her Mavyret and requested her to get the medicine so that the nurse can give her when she is in the hospital. She is currently on IV fluids, normal saline at 100 mL and antibiotic Zosyn. We will continue to monitor the patient and follow the plan of care as per primary care provider and the surgeon The plan was discussed with Dr. Blanchard. Thank you for your consult. Please call us for any further questions or concerns. Dictated by RAINE Mccormack for Solomon Blanchard MD Physician Attestation I have seen and examined the patient. I have discussed and reviewed the the note by Katie NI and agree with findings and plan as documented. Patient presents acute onset abdominal pain diagnosed with acute cholecystitis and POD #1 of cholecystectomy. Preoperative imaging showed dilated CBD concerning for possible choledocholithiasis. MRCP today confirms dilated CBD and abrupt narrowing in the distal CBD concerning for possible stricture, stone, or malignancy. She has history of compensated HCV cirrhosis and currently on Mavyret therapy. Will make patient NPO after MN for possible ERCP with Dr. Garay tomorrow. Will follow with you. Please call with questions. HERNESTO
[2019-02-25] MEDS ORDERED: MISC. PHARMACY COMMUNICATION SCH (17:00)
--- NOTE | 2019-02-25 18:57 | PROGRESS NOTE ---
DATE: 02/25/2019 SUBJECTIVE: She is complaining of pain which is expected, but seems in good spirits. She is trying to eat. No nausea or vomiting. OBJECTIVE: Blood pressure is 142/68, heart rate of 92, respiratory rate 18, temperature 98.3 degrees, 93% on room air.Cardiovascular: Regular rate and rhythm. Pulmonary: Bilateral breath sounds. Clear to auscultation. GI: Soft, nontender, nondistended. Bowel sounds are positive. LABORATORY DATA: White count is up to 19. H H 12 and 36. Platelets 177,000. AST and ALT are up to 60 and 41. PROBLEM LIST: 1. Cholecystitis with persistent biliary obstruction. He had an MRCP done, which showed a biliary obstruction. Gastroenterology has been consulted but I cannot access their note, so I am not quite sure what their plans are. It seems to me like she would need an ERCP as she may have malignancy there, it could be stone. I am going to continue antibiotics but I think she needs ERCP, papillotomy and/or sphincterotomy and stent placement potentially. She sees Dr. Garay. 2. Hepatitis. She is currently getting MAVYRET therapy, which we will continue. DISPOSITION: Pending clinical status. We will continue to follow. cc: Rey Felton MD
[2019-02-25] MEDS: LUMIGAN 0.01% OPH SOLUTION BOTH EYES SCH (21:20)
--- NOTE | 2019-02-25 22:42 | GENERAL SURGERY PROGRESS NOTE ---
DATE: 02/25/2019 SUBJECTIVE: She feels much better today. Abdominal pain is improving. No significant jaundice. No fevers documented. OBJECTIVE: Vital signs: Pulse 92, blood pressure 142/68. Her ÓSCAR drain output has been only 90 mL overnight with an serosanguineous no bile. I reviewed her labs. White count is 19, hematocrit 36, creatinine 0.7. Her bilirubin remains normal. AST, ALT up slightly but her alkaline phosphatase is down. She had a CEA that is 2.2. She had an abdominal MRI that showed abrupt stricture in the distal common bile duct and cirrhosis. ASSESSMENT AND PLAN: This is a 73-year-old female status post laparoscopic cholecystectomy. Given the dense inflammatory nature of the nodular changes in her liver, cholangiogram was not performed yesterday, but she did have a severely inflamed gallbladder. Intraoperatively, her liver was also more consistent with chapis cirrhosis, although she did not have any ascites and no obvious varicosities. We will continue drain for now. She is on antibiotics. She is feeling better. We will advance her diet. She may ultimately benefit from ERCP to further evaluate her distal common bile duct but will monitor going forward. She is very chronically ill frail female and is currently being treated for hepatitis C. cc: Bibi Ojeda MD
[2019-02-26] MEDS: ZOSYN 3.375 GM in NS 50 ML IV SCH ×4 (03:00→20:16)
[2019-02-26] MEDS: NS 1,000 ML IV SCH ×2 (06:14→17:18)
[2019-02-26 06:43] LABS: BASO# 0.02 X1000 (0.0-0.2); BASO% 0.1 % (0.0-0.8); EOS# 0.02 X1000 (0.0-0.7); EOS% 0.1 % (0.0-10.0); HEMATOCRIT 31.2 % (37.0-47.0); HEMOGLOBIN 10.2 g/dL (12.0-16.0); IMM GRAN# 0.03 X1000 (0.0-0.04); IMM GRAN% 0.2 % (0.0-0.5); LYMPH# 3.08 X1000 (1.2-3.4); LYMPH% 23.1 % (20.5-51.1); MCH 30.4 PG (27-31); MCHC 32.7 g/dL (33-37); MCV 92.9 FL (81-99); MONO# 0.97 X1000 (0.11-0.59); MONO% 7.3 % (1.7-9.3); MPV 9.9 FL (7.4-10.4); NEUT# 9.23 X1000 (1.4-6.5); NEUT% 69.2 % (42.2-75.2); PLT 155 X1000 (130-400); RBC 3.36 XMIL (4.2-5.4); RDW 13.5 % (11.5-14.5); WBC 13.35 X1000 (4.8-10.8)
[2019-02-26 07:01] LABS: AGAP 11; ALB/GLOB RATIO 0.9; ALBUMIN 2.8 g/dL (3.5-5.0); ALKALINE PHOSPHATASE 92 U/L (32-104); BUN 14 mg/dL (8-22); CALCIUM 7.3 mg/dL (8.8-10.2); CHLORIDE 105 mmol/L (98-107); COSMO 274; CREATININE 0.6 mg/dL (0.5-0.9); ESTIMATED GFR > 60; GLUCOSE 94 mg/dL (70-104); GOT 57 U/L (10-30); GPT 39 U/L (10-36); POTASSIUM 3.7 mmol/L (3.5-5.1); SODIUM 137 mmol/L (136-145); TCO2 21 mmol/L (25-35); TOTAL BILIRUBIN 1.27 mg/dL (0.20-1.00); TOTAL PROTEIN 5.9 g/dL (6.3-8.3)
[2019-02-26] MEDS: HUMALOG SUBQ SCH ×4 (07:02→23:56)
[2019-02-26] MEDS ORDERED: ZOSYN ONE (08:09)
[2019-02-26] MEDS: PERIDEX MT SCH ×2 (08:33→20:15)
[2019-02-26] MEDS: ALPHAGAN 0.2% OPHTH SOLN BOTH EYES SCH ×3 (08:34→17:18)
[2019-02-26] MEDS ORDERED: ROBINUL ONE (13:16)
[2019-02-26] MEDS ORDERED: XYLOCAINE-MPF 2% ONE (13:16)
[2019-02-26] MEDS ORDERED: DIPRIVAN 1% ONE (13:16)
[2019-02-26] MEDS: MIRALAX PO SCH ×2 (14:49→20:16)
[2019-02-26] MEDS: PATIENT'S OWN MED PO SCH (14:49)
[2019-02-26] MEDS: DILAUDID IV PRN ×2 (14:50→20:50)
--- NOTE | 2019-02-26 14:57 | Diag Imaging Result Doc PS360 ---
EXAM: ERCP-BILIARY AND PANCREATIC INDICATION: r/o choledoch TECHNIQUE: COMPARISON: None. FINDINGS: Four spot fluoroscopic images were provided, which were performed during ERCP and biliary stent placement by Dr. Garya. The common bile duct is significantly dilated, which was also seen on a prior MRCP. There is abrupt narrowing of the distal common bile duct suggesting a possible stricture. No filling defects are identified in the common bile duct to suggest a stone. On the final image, the newly placed biliary stent is identified in the expected position. IMPRESSION: As above. Please correlate with live fluoroscopic imaging. Electronically signed by Willie Vazquez 02/26/2019 2:54 PM
--- NOTE | 2019-02-26 15:03 | OPERATIVE NOTE ---
PROCEDURE DATE: 02/26/2019 PROCEDURE: 1. Endoscopic retrograde cholangiopancreatography. 2. Endoscopic sphincterotomy. 3. Endoscopic stent placement. 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 POSTOPERATIVE DIAGNOSES: 1. Papillary stricture. 2. Juxta-ampullary diverticulum. DESCRIPTION OF PROCEDURE: After informed consent and adequate intravenous sedation, the scope introduced into the esophagus, stomach, and duodenum. The ampulla appears "normal." There is a Juxta-ampullary diverticulum. A cholangiogram revealed a dilated duct with abrupt smooth tapering in the distal common bile duct in the intrapapillary portion. At this point, a wide sphincterotomy was done and a [id number] 5 cm stent was deployed. The patient tolerated the procedure well without any immediate complications. I will keep the stent for at least 2 months. cc: Fco Garay MD
--- NOTE | 2019-02-26 18:56 | GENERAL SURGERY PROGRESS NOTE ---
DATE: 02/26/2019 SUBJECTIVE: She had an ERCP by Dr. Garay, felt to be a papillary stricture, stent was placed. She also had a periampullary diverticulum. Her drains are clear. She has awakened from anesthesia now. OBJECTIVE: Her abdomen is soft. Dressings are clean. LABORATORY DATA: White count 13, hematocrit is 31. Bilirubin was up to 1.27 this morning. ASSESSMENT AND PLAN: This is a 73-year-old female, status post cholecystectomy for cholecystitis. She also had some concerns of biliary obstruction, felt to be related to a benign papillary stricture. She has a stent in place. We will follow her LFTs and advance her diet as tolerated. cc: Bibi Ojeda MD
[2019-02-26] MEDS: LUMIGAN 0.01% OPH SOLUTION BOTH EYES SCH (20:15)
[2019-02-27] MEDS: DILAUDID IV PRN ×4 (00:53→21:09)
--- NOTE | 2019-02-27 01:11 | PROGRESS NOTE ---
DATE: 02/26/2019 SUBJECTIVE: Patient has no major complaints. OBJECTIVE: Vital signs: Blood pressure is 179/86, heart rate 114, respiratory 16, temperature 98.4 degrees. Cardiovascular: Regular rate and rhythm. Pulmonary: Bilateral breath sounds clear to auscultation. Gastrointestinal: Soft, nontender, nondistended. Bowel sounds are positive. LABORATORY DATA: White count 13, hemoglobin and hematocrit 10 and 31, platelets 155,000. Basic was normal, AST and ALT are 57 and 39. PROBLEM LIST: 1. Cholecystitis with abnormal biliary dyskinesia. She is status post laparoscopic cholecystectomy, postoperative day #2. She is stabilizing. Surgery is following, appreciate their input. 2. Common bile duct obstruction. She is status post ERCP today, per Dr. Garay. She had a papillary stricture and a diverticulum. There was no evidence of cancer. We will continue to follow. A sphincterotomy and stent placement was pursued. The patient is stabilizing. 3. Hepatitis C with cirrhosis. We will continue to monitor for changes and bleeding. We will continue to Mavyret therapy. 4. Disposition pending clinical status. I explained this to patient and family. cc: Rey Felton MD
[2019-02-27] MEDS: ZOSYN 3.375 GM in NS 50 ML IV SCH ×4 (02:04→21:02)
[2019-02-27 02:08] LABS: AGAP 10; ALB/GLOB RATIO 0.9; ALBUMIN 2.9 g/dL (3.5-5.0); ALKALINE PHOSPHATASE 339 U/L (32-104); BUN 11 mg/dL (8-22); CALCIUM 8.4 mg/dL (8.8-10.2); CHLORIDE 103 mmol/L (98-107); COSMO 274; CREATININE 0.5 mg/dL (0.5-0.9); ESTIMATED GFR > 60; GLUCOSE 121 mg/dL (70-104); GOT 114 U/L (10-30); GPT 66 U/L (10-36); POTASSIUM 3.2 mmol/L (3.5-5.1); SODIUM 137 mmol/L (136-145); TCO2 24 mmol/L (25-35); TOTAL PROTEIN 6.1 g/dL (6.3-8.3)
[2019-02-27] MEDS: NS 1,000 ML IV SCH ×2 (03:16→16:11)
[2019-02-27 06:41] LABS: INR 1.19; PROTIME 15.3 Seconds (11.0-16.0)
[2019-02-27] MEDS: HUMALOG SUBQ SCH ×4 (06:53→21:17)
[2019-02-27] MEDS ORDERED: ZOSYN ONE ×3 (08:07→21:03)
[2019-02-27] MEDS: ALPHAGAN 0.2% OPHTH SOLN BOTH EYES SCH ×3 (08:14→16:12)
[2019-02-27] MEDS: MIRALAX PO SCH (08:16)
[2019-02-27] MEDS: PERIDEX MT SCH ×2 (08:17→21:01)
[2019-02-27] MEDS: PATIENT'S OWN MED PO SCH (08:18)
--- NOTE | 2019-02-27 10:59 | PROGRESS NOTE ---
DATE: 02/27/2019 SUBJECTIVE: The patient complained of having some abdominal pain, especially in the right upper quadrant area. She also states that she does not have any appetite and is not able to eat anything. OBJECTIVE: Vital Signs: Temperature is 97.6 degrees, pulse 90 per minute, respiratory rate 18 per minute, blood pressure 190/89, and pulse ox 91% on 2 L of oxygen via nasal cannula. General: The patient is alert and oriented times 3. She does not appear to be in any acute distress. Cardiovascular System: First and second heart sounds are audible without any murmurs or gallops. Respiratory System: Bilateral lung air entry is good without any rales or rhonchi. Gastrointestinal System: The abdomen is soft but slightly distended. It is significantly tender in the epigastric and right upper quadrant areas. DIAGNOSTIC DATA: CBC showed a WBC count of 13.35, hemoglobin 10.2, hematocrit 31.2, and platelet count 155. Comprehensive metabolic panel showed a potassium level of 3.2, glucose 121, total bilirubin 3.7, AST 114, ALT 66, and alkaline phosphatase 339. In comparison, her bilirubin was found to be 1.27 yesterday. Her AST and ALT were also better at 57 and 39 respectively. Furthermore, her alkaline phosphatase was within normal limits at 92 yesterday. IMPRESSION: 1. Cholecystitis, status post cholecystectomy. 2. Common bile duct obstruction secondary to benign stricture status post stent placement. 3. Hepatitis C cirrhosis. 4. Hypertension. 5. Drop in hemoglobin and hematocrit. 6. Hypokalemia. 7. Elevated bilirubin and transaminitis. That is worse as compared to yesterday. PLAN: We will continue with supportive care and continue with Zosyn intravenously along with IV fluids. She does have diabetes and therefore were are going to continue lispro insulin as per sliding scale. She does have a drop in hemoglobin and hematocrit and has worsening of transaminitis along with an elevated bilirubin which needs to be monitored. GI is already following her and I am going to have repeat labs in the morning tomorrow to reassess the situation. She is also currently being followed by General Surgery. cc: Meli Daugherty MD
--- NOTE | 2019-02-27 13:13 | GASTROENTEROLOGY PROGRESS NOTE ---
DATE: 02/27/2019 SUBJECTIVE: Ms. Irene is a 73-year-old female. She complains of having nausea and no appetite, but denies any vomiting. She c/o of abdominal tenderness in the incision areas. OBJECTIVE: Vital Signs: Temperature 97.6 degrees, pulse is 98, respirations 18, blood pressure is 90/89, oxygen saturation 91% on 2 L nasal cannula. Her weight is 110 pounds. BMI is 20.1 kg/m2. General: She is alert, oriented x3, in no acute distress. HEENT: Pale conjunctivae. No icterus. PERRL. Neck: Supple. Lungs: Clear to auscultation in the anterior pope. Cardiovascular: Regular rate and rhythm. No murmurs, rubs, or gallops heard on auscultation. Abdomen: Soft, tender, distended. Midline incisions on the right and in the lower quadrant. Has a ÓSCAR drain. Active bowel sounds heard in all 4 quadrants. Extremities: No cyanosis, clubbing, or edema. 2+ pedal pulses present. Neurologic: Alert, oriented x3. LAB: WBC 13.35, RBC 3.36, hemoglobin 10.2, hematocrit is 32, platelet count is 155,000. Sodium 137, potassium 3.8, chloride 103, carbon dioxide 24, anion gap 10, BUN 7, creatinine 0.5, glucose is 121, calcium 8.4, total bilirubin is 3.7, AST is 104, ALT 66, alkaline phosphatase 339. IMPRESSION AND PLAN: Abdominal pain Nausea and Vomiting Cholecystitis S/P cholecystectomy Common bile duct obstruction Anemia Hepatitis C Moderate cirrhosis Diabetes Hypertension COPD PLAN: An ERCP was done yesterday for her CBD obstruction, findings are papillary strictures and Juxta-ampullary diverticulum, stent has been placed. We will continue with the current plan of care, patient is on IV fluids and antibiotic Zosyn per PCP. We have requested the patient to continue her Hep C medication Mavyret even when she is in the hospital. She will continue with her bowel regimen Miralax 17 g BID. The patient has been complaining of abdominal pain at the incision areas, she is on Dilaudid 0.5 mg every 3 hours as needed. The patient's hemoglobin and hematocrit today were 10.2 and 31.2. We will continue to monitor her CBCs and BMPs and continue to follow the plan of care per PCP and the surgeon. This plan was discussed with Dr. Blanchard. Please call us for any further questions or concerns. Dictated by RAINE Mccormack for Solomon Blanchard MD Physician Attestation I have seen and examined the patient. I have discussed and reviewed the the note by Katie NI and agree with findings and plan as documented. In brief, Ms. 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 GI consulted for dilated CBD found on imaging. She underwent ERCP yesterday that showed periampullary diverticulum and papillary stricture s/p sphincterotomy and stent placement. Leukocytosis improving; however LFT show increased cholestatic pattern concerning for possible worsening liver function vs. biliary obstruction. Continue antibiotics, trend LFTs daily and serial abdominal exams. MTDD
--- NOTE | 2019-02-27 19:29 | GENERAL SURGERY PROGRESS NOTE ---
DATE: 02/27/2019 SUBJECTIVE: Doing well. She is tolerating a diet. She is having some pain but an appropriate amount. No fever. No tachycardia. I reviewed her labs this morning. Her bilirubin is up slightly after ERCP yesterday, but her drain serosanguineous. ASSESSMENT/PLAN: 73-year-old female with cholecystitis, possible biliary stricture, but this appeared to be just a benign axillary structure. Keep her drain for now. Dr. Delgado is covering my patients. She is on antibiotics. Gastroenterology is following in regards to her hepatitis C and biliary stricture. cc: Bibi Ojeda MD
[2019-02-27] MEDS: LUMIGAN 0.01% OPH SOLUTION BOTH EYES SCH (21:01)
[2019-02-27] MEDS: ZOFRAN IV PRN (21:10)
[2019-02-28] MEDS: ZOSYN 3.375 GM in NS 50 ML IV SCH ×4 (02:59→19:49)
[2019-02-28] MEDS: NS 1,000 ML IV SCH ×3 (02:59→22:06)
[2019-02-28] MEDS: DILAUDID IV PRN ×5 (03:01→22:06)
[2019-02-28] MEDS: MIRALAX PO SCH ×3 (03:03→09:23)
[2019-02-28] MEDS: HUMALOG SUBQ SCH ×4 (06:51→21:00)
[2019-02-28 07:02] LABS: BASO# 0.02 X1000 (0.0-0.2); BASO% 0.2 % (0.0-0.8); EOS# 0.12 X1000 (0.0-0.7); EOS% 1.3 % (0.0-10.0); HEMOGLOBIN 11.1 g/dL (12.0-16.0); IMM GRAN# 0.04 X1000 (0.0-0.04); IMM GRAN% 0.4 % (0.0-0.5); LYMPH# 2.03 X1000 (1.2-3.4); LYMPH% 22.3 % (20.5-51.1); MCH 30.7 PG (27-31); MCHC 33.6 g/dL (33-37); MCV 91.2 FL (81-99); MONO# 0.71 X1000 (0.11-0.59); MONO% 7.8 % (1.7-9.3); MPV 9.6 FL (7.4-10.4); NEUT# 6.19 X1000 (1.4-6.5); PLT 191 X1000 (130-400); RBC 3.62 XMIL (4.2-5.4); RDW 13.8 % (11.5-14.5); WBC 9.11 X1000 (4.8-10.8)
[2019-02-28 07:23] LABS: AGAP 12; ALB/GLOB RATIO 0.9; ALBUMIN 2.7 g/dL (3.5-5.0); ALKALINE PHOSPHATASE 286 U/L (32-104); BUN 7 mg/dL (8-22); CHLORIDE 104 mmol/L (98-107); COSMO 278; CREATININE 0.4 mg/dL (0.5-0.9); ESTIMATED GFR > 60; GLUCOSE 110 mg/dL (70-104); GOT 67 U/L (10-30); GPT 61 U/L (10-36); POTASSIUM 2.9 mmol/L (3.5-5.1); SODIUM 140 mmol/L (136-145); TCO2 24 mmol/L (25-35); TOTAL BILIRUBIN 3.59 mg/dL (0.20-1.00); TOTAL PROTEIN 5.8 g/dL (6.3-8.3)
[2019-02-28] MEDS ORDERED: KLOR-CON PO ONE (08:31)
[2019-02-28] MEDS: ALPHAGAN 0.2% OPHTH SOLN BOTH EYES SCH ×3 (09:23→17:30)
[2019-02-28] MEDS: PERIDEX MT SCH ×2 (09:23→19:49)
[2019-02-28] MEDS: PATIENT'S OWN MED PO SCH (09:25)
--- NOTE | 2019-02-28 10:05 | PROGRESS NOTE ---
DATE: 02/28/2019 SUBJECTIVE: Patient has no new complaints. States that she is feeling okay. Still having some abdominal pain but otherwise better. PHYSICAL EXAMINATION: Vital signs: Temperature 98 degrees, pulse 77, respiratory rate 18, blood pressure 111/64. General: Patient is in no current respiratory distress. HEENT: Normocephalic. Neck: Supple. Cardiovascular: Regular rhythm and rate. Chest: Clear. Abdomen: Soft. Extremities: Moves all extremities. No edema. Neurologic: No changes. ASSESSMENT: 1. Hypokalemia. We will replace potassium. 2. Cholecystitis status post cholecystectomy. 3. Common bile duct obstruction status post stent placement. 4. Hepatitis C with cirrhosis. 5. Hypertension. 6. Anemia. PLAN: We are going to continue antibiotics, Zosyn. Continue to follow. Replace potassium. cc: Hector Mehta MD
--- NOTE | 2019-02-28 14:34 | GENERAL SURGERY PROGRESS NOTE ---
DATE: 02/28/2019 She is 4 days after laparoscopic cholecystectomy. She is also post ERCP on the . She is afebrile with stable hemodynamics. She says she is passing some flatus. Her bowels had moved MiraLAX. She is tolerating the full liquids. She is afebrile. Labs show her potassium fallen to 2.9, glucoses are in the low 100s, total bilirubin is slightly down to 3.6, AST down the 67, ALT down to 61, alkaline phosphatase down to 286. The plan will be to advance her diet. She continues to put out serous fluid from her drain but there is no bilious drainage. cc: Roger Delgado MD
[2019-02-28] MEDS: LUMIGAN 0.01% OPH SOLUTION BOTH EYES SCH (19:49)
[2019-03-01] MEDS: LABETALOL IV PRN (00:04)
[2019-03-01] MEDS: NS 1,000 ML IV SCH ×4 (02:21→16:10)
[2019-03-01] MEDS: ZOSYN 3.375 GM in NS 50 ML IV SCH ×4 (03:07→20:41)
[2019-03-01] MEDS: DILAUDID IV PRN ×4 (03:08→20:12)
[2019-03-01] MEDS: HUMALOG SUBQ SCH ×4 (07:22→21:00)
[2019-03-01] MEDS: LUMIGAN 0.01% OPH SOLUTION BOTH EYES SCH ×2 (07:22→20:41)
[2019-03-01] MEDS: MIRALAX PO SCH ×3 (07:23→20:42)
[2019-03-01 08:56] LABS: HEMATOCRIT 36.3 % (37.0-47.0); HEMOGLOBIN 12.3 g/dL (12.0-16.0); MCH 31.4 PG (27-31); MCHC 33.9 g/dL (33-37); MCV 92.6 FL (81-99); MPV 9.5 FL (7.4-10.4); RBC 3.92 XMIL (4.2-5.4); RDW 14.4 % (11.5-14.5); WBC 11.52 X1000 (4.8-10.8)
[2019-03-01] MEDS: PERIDEX MT SCH ×2 (09:02→20:41)
[2019-03-01] MEDS: ALPHAGAN 0.2% OPHTH SOLN BOTH EYES SCH ×3 (09:03→16:36)
[2019-03-01] MEDS: PATIENT'S OWN MED PO SCH (09:05)
--- NOTE | 2019-03-01 09:15 | GENERAL SURGERY PROGRESS NOTE ---
DATE: 03/01/2019 She is now 5 days after her cholecystectomy. She is tolerating her food. Her hemodynamics are satisfactory. White count is 11,500 today. Her drain continues to be only serous. No bilious drainage. Plan will be to recheck her LFTs, to monitor continued progress. cc: Roger Delgado MD
[2019-03-01 09:20] LABS: AGAP 13; ALB/GLOB RATIO 0.8; ALBUMIN 2.9 g/dL (3.5-5.0); ALKALINE PHOSPHATASE 296 U/L (32-104); BUN 6 mg/dL (8-22); CALCIUM 8.5 mg/dL (8.8-10.2); CHLORIDE 102 mmol/L (98-107); COSMO 275; CREATININE 0.5 mg/dL (0.5-0.9); ESTIMATED GFR > 60; GLUCOSE 127 mg/dL (70-104); GOT 50 U/L (10-30); GPT 55 U/L (10-36); POTASSIUM 3.3 mmol/L (3.5-5.1); SODIUM 138 mmol/L (136-145); TCO2 23 mmol/L (25-35); TOTAL BILIRUBIN 1.79 mg/dL (0.20-1.00); TOTAL PROTEIN 6.6 g/dL (6.3-8.3)
[2019-03-01] MEDS: NORVASC PO SCH (11:10)
[2019-03-01] MEDS: POTASSIUM CHLORIDE 20 MEQ/SWI 20 MEQ/100 ML IVPB IV SCH ×2 (12:38→16:28)
--- NOTE | 2019-03-01 14:57 | PROGRESS NOTE ---
DATE: 03/01/2019 INTERVAL HISTORY: The patient still complaining of generalized weakness and minimal abdominal pain but no new complaints. No acute events overnight. Still a fair amount of output from abdominal drain, but remains serosanguineous. REVIEW OF SYSTEMS: Twelve point review of systems negative except as per interval history. LABS: WBC 11.5, hemoglobin 12.3, hematocrit 36.3, platelets 243,000. Sodium 138, potassium 3.3, BUN 6, creatinine 0.5, glucose 127 and 144, bilirubin 1.79, AST 50, ALT 55, alkaline phosphatase 296. VITALS: T-max 98.6 degrees, pulse 67, respirations 16, blood pressure 143/69, O2 saturation 100% on room air. PHYSICAL EXAMINATION: General: No acute distress. Vitals: As above. HEENT: Normocephalic, atraumatic. Moist mucous membranes. No cervical adenopathy. Cardiovascular: Regular rate and rhythm. No murmurs noted. Pulmonary: Clear to auscultation bilaterally. No wheezing, rales, or rhonchi. Abdomen: Soft. Surgical incisions bandaged. Bandages clean, dry, intact. Bowel sounds decreased but present. Extremities: Peripheral pulses intact. No clubbing or cyanosis. Neurologic: Cranial nerves grossly intact. No focal deficits identified. Psychiatric: Normal mood and affect. Awake, alert, oriented x3. ASSESSMENT/PLAN: 1. Cholecystitis. The patient is status post cholecystectomy. Also had common bile duct obstruction. Postop as below. Still with surgical drain in place with a lot of primarily serous drainage. Surgery following. Will await decisions about her drain. 2. Common bile duct obstruction, status post stent placement by GI on the . Papillary stricture and juxtoampullary diverticulum noted but no clear evidence of malignancy. Stent was placed and since then, the patient's LFTs appear to be normalizing. 3. Chronic hepatitis C with cirrhosis. The patient continuing her hepatitis C treatment. LFTs appear to be normalizing as above. Continue to monitor. 4. Diabetes mellitus. Good control of sugars currently. Monitor. 5. Anemia, stable to slightly improved. 6. Hypokalemia. Will again replete and monitor. 7. Disposition: Given LFTs trending down to near normal, we will likely discharge home in the near future once drain removed and cleared by Surgery.
[2019-03-01] MEDS ORDERED: POTASSIUM CHLORIDE 20 MEQ/SWI 20 MEQ/100 ML IVPB IV SCH (15:00)
[2019-03-02] MEDS: NS 1,000 ML IV SCH (00:05)
[2019-03-02] MEDS: ZOSYN 3.375 GM in NS 50 ML IV SCH ×4 (02:04→19:59)
[2019-03-02] MEDS: DILAUDID IV PRN ×3 (03:20→07:36)
[2019-03-02] MEDS: HUMALOG SUBQ SCH ×4 (06:39→22:49)
[2019-03-02 07:02] LABS: BASO# 0.05 X1000 (0.0-0.2); BASO% 0.5 % (0.0-0.8); EOS# 0.21 X1000 (0.0-0.7); EOS% 1.9 % (0.0-10.0); HEMATOCRIT 32.7 % (37.0-47.0); HEMOGLOBIN 10.8 g/dL (12.0-16.0); IMM GRAN# 0.07 X1000 (0.0-0.04); IMM GRAN% 0.6 % (0.0-0.5); LYMPH% 23.8 % (20.5-51.1); MCH 30.9 PG (27-31); MCV 93.7 FL (81-99); MONO# 1.02 X1000 (0.11-0.59); MONO% 9.3 % (1.7-9.3); MPV 9.6 FL (7.4-10.4); NEUT# 6.99 X1000 (1.4-6.5); NEUT% 63.9 % (42.2-75.2); PLT 218 X1000 (130-400); RBC 3.49 XMIL (4.2-5.4); RDW 14.7 % (11.5-14.5); WBC 10.94 X1000 (4.8-10.8)
[2019-03-02 07:35] LABS: AGAP 11; ALB/GLOB RATIO 0.8; ALBUMIN 2.7 g/dL (3.5-5.0); ALKALINE PHOSPHATASE 240 U/L (32-104); BUN 6 mg/dL (8-22); CALCIUM 8.2 mg/dL (8.8-10.2); CHLORIDE 105 mmol/L (98-107); COSMO 275; CREATININE 0.4 mg/dL (0.5-0.9); ESTIMATED GFR > 60; GLUCOSE 127 mg/dL (70-104); GOT 34 U/L (10-30); GPT 42 U/L (10-36); POTASSIUM 3.5 mmol/L (3.5-5.1); SODIUM 138 mmol/L (136-145); TCO2 22 mmol/L (25-35); TOTAL BILIRUBIN 1.63 mg/dL (0.20-1.00); TOTAL PROTEIN 5.9 g/dL (6.3-8.3)
[2019-03-02] MEDS: MIRALAX PO SCH ×2 (08:43→19:59)
[2019-03-02] MEDS: PERIDEX MT SCH ×3 (08:43→22:00)
[2019-03-02] MEDS: NORVASC PO SCH (08:43)
[2019-03-02] MEDS: PATIENT'S OWN MED PO SCH (09:00)
[2019-03-02] MEDS: ALPHAGAN 0.2% OPHTH SOLN BOTH EYES SCH ×3 (09:00→17:36)
[2019-03-02 10:28] LABS: INR 1.07; PROTIME 14.1 Seconds (11.0-16.0)
--- NOTE | 2019-03-02 11:08 | GASTROENTEROLOGY PROGRESS NOTE ---
DATE: 03/02/2019 SUBJECTIVE: Ms. Irene was sitting in bed, having her breakfast. Complained of abdominal pain at the incision area and nausea, but denied any vomiting. OBJECTIVE: Vital Signs: Temperature 98.1 degrees, pulse is 81, respirations 20, blood pressure 116/69, oxygen saturation is 97% on 3 L nasal cannula. Her weight is 110 pounds. BMI is 20.1 kg/m2. General: She is alert and oriented x3, in no acute distress. HEENT: Pale conjunctivae. No icterus. PERRL. Neck: Supple. Lungs: Clear to auscultation in the anterior pope. Cardiovascular: Regular rate and rhythm. No murmurs or rubs are heard on auscultation. Abdomen: Soft, tender, distended. Midline incision on the right and in the lower quadrant, ÓSCAR drain which is draining serous fluid. Active bowel sounds heard in all 4 quadrants. Extremities: No clubbing, cyanosis, or edema. Pedal pulses 2+ present bilaterally. Neurological: Alert and oriented x3. LABORATORY DATA: WBCs 10.94, RBCs 3.49, hemoglobin 10.8, hematocrit 32.7, platelet count is 218. Her PT is 14.1, and INR is 1.07. Sodium is 138, potassium is 3.5, chloride 105, carbon dioxide 20, anion gap is 11, BUN is 6, creatinine is 0.4, glucose is 127, calcium is 8.2. Total bilirubin is 160, AST is 34, ALT is 42, alkaline phosphatase is 240. IMPRESSION AND PLAN: Abdominal pain Nausea and Vomiting Cholecystitis S/P cholecystectomy Common BIle Duct obstruction s/p ERCP with stent placement Anemia Hepatitis C Moderate cirrhosis Diabetes Hypertension COPD PLAN: The patient is on Mavyret for her hepatitis C. We have asked the patient to continue the medicine while she is in the hospital. Her liver enzymes today were AST 34, ALT 42, and alkaline phosphatase 240. Her total bilirubin is 1.63. It has been trending downward. We will continue the patient with Miralax twice a day for her bowel regimen. She is receiving antibiotics and intravenous fluids. Will continue to watch the patient's liver function tests. Her H & H 10.8 and 32.7, we will continue to monitor her CBC and BMP, and follow the plan of care per PCP, and the surgeon. Patient will return to clinic in 4 weeks for ERCP with stent removal with Dr Garay. This plan was discussed with Dr. Taylor. Please call us for any further questions or concerns. Dictated by RAINE Mccormack for Colin Taylor MD cc: Colin Taylor MD I have seen and examined the patient myself and I agree with the above plan of care. Discussed the above with the patient and all questions were answered. Please call us with any further questions. HERNESTO
[2019-03-02] MEDS: NORCO-7.5 PO PRN ×3 (11:42→23:27)
[2019-03-02] MEDS ORDERED: XYLOCAINE-MPF 2% ONE (12:33)
[2019-03-02] MEDS ORDERED: DIPRIVAN 1% ONE (12:33)
[2019-03-02] MEDS ORDERED: QUELICIN (DOSE) ONE (13:26)
[2019-03-02] MEDS ORDERED: AMIDATE ONE (13:26)
[2019-03-02] MEDS ORDERED: FENTANYL ONE (13:33)
--- NOTE | 2019-03-02 14:29 | PROGRESS NOTE ---
DATE: 03/02/2019 INTERVAL HISTORY: Patient still reporting some epigastric to right upper quadrant abdominal pain. Surgical drain still putting out a significant amount of serosanguineous drainage. No other complaints. No acute events overnight. REVIEW OF SYSTEMS: Twelve point review of systems negative except as per interval history. LABS: WBC 10.9, hemoglobin 10.8, hematocrit 32.7, platelets 218,000. Sodium 138, potassium 3.5, BUN 6, creatinine 0.4, glucose 117 to 138, bilirubin 1.6, AST 34, ALT 42, alkaline phosphatase 240. VITALS: T-max 98.4 degrees, pulse 86, respirations 20, blood pressure 160/69, O2 saturation 97% on 3 L by nasal cannula. PHYSICAL EXAMINATION: General: No acute distress. Vitals as above. HEENT: Normocephalic, atraumatic. Moist mucous membranes. No cervical adenopathy. Cardiovascular: Regular rate and rhythm. No murmurs noted. Pulmonary: Clear to auscultation bilaterally. No wheezing, rales or rhonchi. Abdomen: Soft. Minimal expected tenderness around surgical incisions. Incisions look good, clean, dry and intact. Right upper quadrant drain with continued serosanguineous drainage. Bowel sounds decreased but present. Extremities: Peripheral pulses intact. No clubbing or cyanosis. Neurologic: Cranial nerves grossly intact. No focal deficits. Psychiatric: Normal mood and affect. Awake, alert, oriented x3. Skin: No jaundice. No new rashes noted. ASSESSMENT AND PLAN: 1. Acute cholecystitis. Patient status post colectomy. Also had common bile duct obstruction postop as below. Surgical drain still with pretty significant serosanguineous drainage. Surgery following. Will see if they have further recommendations regarding her drain output. 2. Common bile duct obstruction status post stent placement by gastroenterology on the . Papillary stricture and katie-ampullary diverticulum noted at that time but no clear evidence of malignancy and stent was placed successfully. Since stent placement liver function tests are trending down towards normal. Still with some pain. Not entirely certain about the origin of her pain. May just be a little more sensitive postop. 3. Chronic hepatitis C with cirrhosis. Patient is on treatment for her hepatitis C which she is continuing. Liver function tests trending toward normal as above. Continue to monitor but looks to be pretty stable. 4. Diabetes mellitus. Glucose control remains good. Continue current therapy. 5. Anemia essentially stable. 6. Hypokalemia improved today. Will continue to monitor and replete as needed. 7. Disposition, liver function tests trending down so medically pretty stable, still with a lot of output from her surgical drain. Anticipate discharge once drains are able to be removed and patient tolerating diet well. [facility]
[2019-03-02] MEDS: LUMIGAN 0.01% OPH SOLUTION BOTH EYES SCH (19:59)
--- NOTE | 2019-03-02 20:01 | GENERAL SURGERY PROGRESS NOTE ---
DATE: 03/02/2019 SUBJECTIVE: Seems more alert. She is having some pain, she says mostly in her incision. DIAGNOSTIC STUDIES: White count is now 10, hematocrit is 32. Creatinine 0.4, bilirubin continues to down trend, AST and ALT and alkaline phosphatase are normalizing. ASSESSMENT AND PLAN: 1. A 73-year-old female status post cholecystectomy. 2. She has cirrhosis. Her ÓSCAR drain is serosanguineous. We will remove this in the next day or 2. Otherwise I have encouraged her to be out of bed. She can shower. Aggressive pulmonary toileting. Gastroenterology is following after her stent placed for benign biliary stricture distally. cc: Bibi Ojeda MD
[2019-03-03] MEDS: ZOSYN 3.375 GM in NS 50 ML IV SCH ×4 (02:14→21:01)
[2019-03-03] MEDS: NS 1,000 ML IV SCH ×3 (02:15→15:58)
[2019-03-03] MEDS: NORCO-7.5 PO PRN ×4 (05:41→21:47)
[2019-03-03 06:54] LABS: BASO# 0.05 X1000 (0.0-0.2); BASO% 0.5 % (0.0-0.8); EOS# 0.25 X1000 (0.0-0.7); EOS% 2.4 % (0.0-10.0); HEMATOCRIT 33.2 % (37.0-47.0); IMM GRAN# 0.05 X1000 (0.0-0.04); IMM GRAN% 0.5 % (0.0-0.5); LYMPH# 2.32 X1000 (1.2-3.4); LYMPH% 22.2 % (20.5-51.1); MCH 30.8 PG (27-31); MCHC 33.1 g/dL (33-37); MONO# 1.02 X1000 (0.11-0.59); MONO% 9.7 % (1.7-9.3); MPV 9.6 FL (7.4-10.4); NEUT# 6.78 X1000 (1.4-6.5); NEUT% 64.7 % (42.2-75.2); PLT 253 X1000 (130-400); RBC 3.57 XMIL (4.2-5.4); RDW 14.9 % (11.5-14.5); WBC 10.47 X1000 (4.8-10.8)
[2019-03-03] MEDS: HUMALOG SUBQ SCH ×4 (07:00→21:50)
[2019-03-03 07:25] LABS: AGAP 10; ALB/GLOB RATIO 0.9; ALBUMIN 2.7 g/dL (3.5-5.0); ALKALINE PHOSPHATASE 230 U/L (32-104); BUN 4 mg/dL (8-22); CALCIUM 8.2 mg/dL (8.8-10.2); CHLORIDE 102 mmol/L (98-107); COSMO 269; CREATININE 0.5 mg/dL (0.5-0.9); ESTIMATED GFR > 60; GLUCOSE 129 mg/dL (70-104); GOT 27 U/L (10-30); GPT 33 U/L (10-36); POTASSIUM 3.1 mmol/L (3.5-5.1); SODIUM 135 mmol/L (136-145); TCO2 23 mmol/L (25-35); TOTAL PROTEIN 5.8 g/dL (6.3-8.3)
[2019-03-03] MEDS: MIRALAX PO SCH ×3 (08:33→21:04)
[2019-03-03] MEDS ORDERED: KLOR-CON PO ONE (10:44)
--- NOTE | 2019-03-03 10:44 | GASTROENTEROLOGY PROGRESS NOTE ---
DATE: 03/03/2019 SUBJECTIVE: Ms. Irene 73 year old female resting in bed. Denied any nausea or vomiting. She is complaining of abdominal pain at the incision area. She had one bowel movement today and has been tolerating her diet well. OBJECTIVE: Vital Signs: Temperature 98 degrees, pulse of 80, respirations 16, blood pressure is 184/79, oxygen saturation is 99% on room air. Weight is 110 pounds. BMI is 20.1 kg/m2. General: She is alert, oriented x3, and in no acute distress. HEENT: Pale conjunctivae. No icterus. PERRL. Neck: Supple. Lungs: Clear to auscultation in the anterior pope. Cardiovascular: Regular rate and rhythm. Abdomen: Distended, soft, tender. Incisions in the midline, right and lower quadrant of the abdomen. ÓSCAR drain draining serosanguineous fluid. Active bowel sounds heard in all 4 quadrants. Extremities: No clubbing, cyanosis, or edema. Pedal pulses 2+ present bilaterally. Neurological: Alert, oriented x3. LABORATORY DATA: WBC is 10.47, RBC 3.57, hemoglobin is 11, hematocrit is 33.2, platelet count is 253,000. Sodium is 135, potassium is 3.1, chloride is 102, carbon dioxide 23, anion gap is 10, BUN is 4, creatinine is 0.5, glucose is 129, calcium is 8.2. Total bilirubin is 2.10, AST is 27, ALT is 33, alkaline phosphatase is 230. IMPRESSION: 1. Abdominal pain, nausea, and vomiting. 2. Cholecystitis, status post cholecystectomy. 3. Common bile duct, s/p ERCP with stent placement. 4. Anemia. 5. Hepatitis C. 6. Moderate cirrhosis. 7. Diabetes. 8. Hypertension. 9. Chronic obstructive pulmonary disease. PLAN:We will continue to follow the current plan of care. The patient's liver function tests AST is 27, ALT is 33, alkaline phosphatase is 230. It is trending downward. The patient is on Mavyret for her hepatitic C. Discussed the importance of taking the medicine every day, even when she is in the hospital. The patient is on MiraLAX for bowel regimen. We will continue to monitor the patient's liver function tests, and follow the plan of care per primary care provider and the surgeon. This plan was discussed with Dr. Blanchard. Please call us with any further questions or concerns. Dictated by RAINE Mccormack for Solomon Blanchard MD Physician Attestation I have seen and examined the patient. I have discussed and reviewed the the note by Katie NI and agree with findings and plan as documented. In brief, Ms. Renae Irene is a 73 year old woman with HCV cirrhosis who presented with acute cholecystitis s/p cholecystectomy and distal CBD stricture s/p ERCP with sphincterotomy and stent placement. Her course has been complicated with probable decompensation of cirrhosis with ascites noted draining from ÓSCAR drain. Approximately 700 mL in the last 24 hours. Her incision is c/d/i without significant abdominal distension. Recommend discontinuing ÓSCAR drain as per surgery. She is on lasix 40mg IV daily. Preserved renal function. Repeat K prn. LFTs drown-trending. Patient tolerating PO and +BM two days ago. On bowel regimen. Patient was restarted on Mavyret for HCV. Will follow with you. MTDD
[2019-03-03] MEDS: NORVASC PO SCH (10:58)
[2019-03-03] MEDS: PERIDEX MT SCH ×2 (10:58→21:01)
[2019-03-03] MEDS: ALPHAGAN 0.2% OPHTH SOLN BOTH EYES SCH ×3 (11:04→20:04)
[2019-03-03] MEDS: PATIENT'S OWN MED PO SCH (11:16)
[2019-03-03] MEDS ORDERED: ALBUMIN 25% IV ONE ×2 (17:21→17:45)
--- NOTE | 2019-03-03 17:54 | PROGRESS NOTE ---
DATE: 03/03/2019 SUBJECTIVE: Patient has no major complaints. OBJECTIVE: Vital signs: Blood pressure 157/71, heart rate of 92, respiratory rate of 20, temperature 97.6 degrees, 98% on room air. Cardiovascular: Regular rate and rhythm. Pulmonary: Bilateral breath sounds. Clear to auscultation. GI: Soft, nontender, nondistended. Bowel sounds are positive. LABORATORY DATA: T. bilirubin is still up but her AST and ALT are normal. Potassium is 3.1. PROBLEM LIST: 1. Cholecystitis status post laparoscopic cholecystectomy. She is doing okay. Her ÓSCAR has been removed. She has a little bit of leak, which may be just some ascites. 2. Common bile duct obstruction status post stents, but there is no evidence of malignancy. Her liver enzymes are coming back down. 3. Hepatitis C with cirrhosis. We will continue treatment and follow. 4. Type 2 diabetes. Follow on sliding scale. DISPOSITION: I anticipate discharge soon. She is not having any more leaking. I am going to stop her fluids and give her a dose of Lasix and albumin. We may have to put a stitch in that incision, but that will be up to Dr. Ojeda. We will see how she does. cc: Rey Felton MD
[2019-03-03] MEDS: LASIX IV SCH (20:16)
[2019-03-03] MEDS: LUMIGAN 0.01% OPH SOLUTION BOTH EYES SCH (21:02)
[2019-03-04] MEDS: ZOSYN 3.375 GM in NS 50 ML IV SCH ×3 (01:12→14:05)
[2019-03-04] MEDS: NORCO-7.5 PO PRN ×3 (04:39→21:11)
[2019-03-04 06:03] LABS: BASO# 0.06 X1000 (0.0-0.2); BASO% 0.6 % (0.0-0.8); HEMATOCRIT 32.4 % (37.0-47.0); HEMOGLOBIN 10.8 g/dL (12.0-16.0); IMM GRAN# 0.04 X1000 (0.0-0.04); IMM GRAN% 0.4 % (0.0-0.5); LYMPH% 20.9 % (20.5-51.1); MCHC 33.3 g/dL (33-37); MCV 93.1 FL (81-99); MONO# 0.84 X1000 (0.11-0.59); MONO% 8.4 % (1.7-9.3); MPV 9.6 FL (7.4-10.4); NEUT# 6.71 X1000 (1.4-6.5); NEUT% 66.7 % (42.2-75.2); PLT 266 X1000 (130-400); RBC 3.48 XMIL (4.2-5.4); RDW 15.2 % (11.5-14.5); WBC 10.05 X1000 (4.8-10.8)
[2019-03-04 06:22] LABS: AGAP 11; ALB/GLOB RATIO 0.9; ALKALINE PHOSPHATASE 215 U/L (32-104); BUN 3 mg/dL (8-22); CALCIUM 7.8 mg/dL (8.8-10.2); CHLORIDE 100 mmol/L (98-107); COSMO 272; CREATININE 0.5 mg/dL (0.5-0.9); ESTIMATED GFR > 60; GLUCOSE 124 mg/dL (70-104); GOT 25 U/L (10-30); GPT 27 U/L (10-36); POTASSIUM 3.1 mmol/L (3.5-5.1); SODIUM 137 mmol/L (136-145); TCO2 26 mmol/L (25-35); TOTAL BILIRUBIN 2.08 mg/dL (0.20-1.00); TOTAL PROTEIN 6.2 g/dL (6.3-8.3)
[2019-03-04] MEDS: HUMALOG SUBQ SCH ×4 (06:50→21:15)
[2019-03-04] MEDS: LABETALOL IV PRN (07:14)
[2019-03-04] MEDS: PERIDEX MT SCH ×2 (08:31→21:11)
[2019-03-04] MEDS: LASIX IV SCH (08:31)
[2019-03-04] MEDS: ALPHAGAN 0.2% OPHTH SOLN BOTH EYES SCH ×3 (08:31→16:53)
[2019-03-04] MEDS: MIRALAX PO SCH ×2 (08:32→21:12)
[2019-03-04] MEDS: NORVASC PO SCH (08:32)
[2019-03-04] MEDS: PATIENT'S OWN MED PO SCH (08:34)
--- NOTE | 2019-03-04 09:43 | GENERAL SURGERY PROGRESS NOTE ---
DATE: 03/03/2019 SUBJECTIVE: She feels okay. She does complain about incisional pain. Her drain was removed today as it was serosanguineous. There has been moderate output. No fevers. No tachycardia. Her LFTs remain slightly elevated, but overall have been downtrending. ASSESSMENT AND PLAN: A 73-year-old female with cirrhosis. She had cholecystitis, status post cholecystectomy. I removed her drain today. Gastroenterology is following regarding her chronic liver disease. Will follow her along. cc: Bibi Ojeda MD
--- NOTE | 2019-03-04 10:33 | GASTROENTEROLOGY PROGRESS NOTE ---
DATE: 03/04/2019 SUBJECTIVE: Ms. Irene 73-year-old female sitting in the chair having her breakfast. She has denied any nausea or vomiting. She is still complaining of abdominal pain in the incision area. She has denied any bowel movements today, she said that she has been urinating a lot, and sometimes not able to make it to the bathroom and also a lot of drainage from the ÓSCAR drain site. OBJECTIVE: Vital Signs: Temperature 97.8 degrees, pulse 63, respirations 16, blood pressure 141/65, and oxygen saturation 98% on 2 L nasal cannula. Patient's weight is 110 pounds. BMI is 20.1 kg per m squared. General: She is alert and oriented x3 in no acute distress. HEENT: Pale conjunctivae. No icterus. PERRL. Neck: Supple. Lungs: Clear to auscultation in the anterior pope. Cardiovascular: Regular rate and rhythm. Abdomen: Distended, soft, tender, incisions in the midline right lower quadrant of the abdomen. ÓSCAR drain has been removed, colostomy bag is in place to hold the drainage, fluid is serosanguineous. Active bowel sounds heard in all 4 quadrants. Extremities: No clubbing, cyanosis, or edema. Pedal pulses 2+ present bilaterally. Neurological: Alert and oriented x3. LABORATORY: WBC is 10.05, RBCs 3.4, hemoglobin 10.8, hematocrit 32.4, and platelet count is 266,000. Sodium is 137, potassium 3.1, chloride 100, carbon dioxide 26, anion gap 11, BUN 3, creatinine is 0.5, glucose 124, calcium 7.8, total bilirubin 2.0, AST is 25, ALT is 27, alkaline phosphatase is 215, and albumin is 2.0. IMPRESSION: Abdominal pain, Nausea/vomiting Cholecystitis s/p cholecystectomy. CBD s/p ERCP with stent placement. Anemia. Hepatitis C. Moderate cirrhosis. Diabetes. Hyperlipidemia. COPD. PLAN: The patient's ÓSCAR drain has been taken out, but it is still draining serosanguineous fluid Nursing staff has placed a colostomy bag to hold the drainage. So far it has drained up to 180 mL. The patient was on IV Lasix 40 mg daily. We have changed it to p.o. Lasix 20 mg daily and will continue to monitor her output and potassium levels. Her LFT's have been trending downward. AST was 25, ALT was 27, and alkaline phosphatase was 205 today. The patient is on Mavyret for her hepatitis C treatment. We have encouraged patient to continue taking it while she is in the hospital. We will continue her bowel regimen MiraLAX 17 g twice a day. We will continue to monitor her LFTs, and also follow the plan of care per primary care provider and the surgeon. This plan was discussed with Dr. Blanchard. Please call us for any further questions or concerns. Dictated by RAINE Mccormack for Soolmon Blanchard MD Physician Attestation I have seen and examined the patient. I have discussed and reviewed the the note by Katie NI and agree with findings and plan as documented. In brief, Ms. Renae Irene is a 73 year old woman with HCV cirrhosis who presented with acute cholecystitis s/p cholecystectomy and distal CBD stricture s/p ERCP with sphincterotomy and stent placement. Her course has been complicated with decompensation of her cirrhosis with ascites draining from ÓSCAR drain; now removed. Approximately 180 mL in the last 24 hours. Her incision is c/d/i without significant abdominal distension. She complains of polyuria with lasix IV. We will stop IV lasix and transition to lasix 20mg PO once daily. She will also start small dose of aldactone 50mg daily. These can be titrated as outpatient. Recommend discontinuing ÓSCAR drain as per surgery. She is on lasix 40mg IV daily. Preserved renal function. LFTs stable. No PSE. She is on bowel regimen. Patient is back on home Mavyret for HCV. Continued post-operative care. OOB and PT. Monitor output from prior ÓSCAR drain site. Will follow with you. MTDD
--- NOTE | 2019-03-04 19:59 | PROGRESS NOTE ---
DATE: 03/04/2019 SUBJECTIVE: Patient has no major complaints, except persistent leaking. OBJECTIVE: Blood pressure 136/66, heart rate 77, respiratory rate 14, temperature 98.1 degrees.Cardiovascular: Regular rate and rhythm. Pulmonary: Bilateral breath sounds diminished at the bases. Gastrointestinal: Soft, nontender, nondistended. Bowel sounds are positive. LABORATORY DATA: Her white count is 10, hemoglobin 10, hematocrit 32, platelets 266,000. Potassium is 3.1. Total bilirubin 2.08. PROBLEM LIST: 1. Cholecystitis status post cholecystectomy with papillary stricture which has now been dilated and stented, and transaminitis is resolving. She seems to be doing better, tolerating p.o. I do not think she still needs antibiotics unless Surgery feels strongly. I think I am going to stop that today. She has been on it for it looks like more than 7 days. 2. Hepatitis C cirrhosis. I think she has got some ascites. I am going to put her on some Lasix and Aldactone. She is still having leaking from her abdomen, which is related to ascites and 3rd spacing. DISPOSITION: 1. I am not really sure she is going to do well at home, and the patient herself does not seem like she feels strong enough to go home and has enough support at home, although that was the initial plan. Social Work for [facility] I do not know if really is a viable option. I do not see that PT has been seeing her, either. I do not know if she has gotten out of bed since she has been in the hospital, but we will get them to evaluate her and go from there. I anticipate at this point I think rehabilitation is more realistic. 2. Hepatitis C cirrhosis. We will continue to monitor. Gastroenterology is following. Continue to follow closely. cc: Rey Felton MD MTDD
[2019-03-04] MEDS: LUMIGAN 0.01% OPH SOLUTION BOTH EYES SCH (21:11)
[2019-03-05] MEDS: NORCO-7.5 PO PRN ×4 (04:21→22:19)
[2019-03-05 06:20] LABS: BASO# 0.04 X1000 (0.0-0.2); BASO% 0.4 % (0.0-0.8); EOS# 0.22 X1000 (0.0-0.7); EOS% 2.4 % (0.0-10.0); HEMATOCRIT 32.8 % (37.0-47.0); HEMOGLOBIN 10.9 g/dL (12.0-16.0); IMM GRAN# 0.03 X1000 (0.0-0.04); IMM GRAN% 0.3 % (0.0-0.5); LYMPH# 2.41 X1000 (1.2-3.4); LYMPH% 25.8 % (20.5-51.1); MCH 30.9 PG (27-31); MCHC 33.2 g/dL (33-37); MCV 92.9 FL (81-99); MONO# 0.72 X1000 (0.11-0.59); MONO% 7.7 % (1.7-9.3); MPV 9.7 FL (7.4-10.4); NEUT# 5.93 X1000 (1.4-6.5); NEUT% 63.4 % (42.2-75.2); PLT 295 X1000 (130-400); RBC 3.53 XMIL (4.2-5.4); RDW 15.5 % (11.5-14.5); WBC 9.35 X1000 (4.8-10.8)
[2019-03-05 06:41] LABS: AGAP 11; ALKALINE PHOSPHATASE 205 U/L (32-104); BUN 4 mg/dL (8-22); CALCIUM 8.3 mg/dL (8.8-10.2); CHLORIDE 99 mmol/L (98-107); COSMO 273; CREATININE 0.5 mg/dL (0.5-0.9); ESTIMATED GFR > 60; GLUCOSE 145 mg/dL (70-104); GOT 24 U/L (10-30); GPT 25 U/L (10-36); POTASSIUM 2.7 mmol/L (3.5-5.1); SODIUM 137 mmol/L (136-145); TCO2 27 mmol/L (25-35); TOTAL BILIRUBIN 1.27 mg/dL (0.20-1.00)
--- NOTE | 2019-03-05 06:55 | Diag Imaging Result Doc PS360 ---
CHEST-PORTABLE - 03/05/2019 INDICATION: dyspnea COMPARISON: 02/24/2019 FINDINGS: There are worsening bibasilar infiltrates or atelectasis. Heart size is normal. Pulmonary vascularity is normal. No large pleural effusion. IMPRESSION: Worsening bilateral lower lobe infiltrates or atelectasis. Electronically signed by Jaden No 03/05/2019 6:53 AM
[2019-03-05] MEDS: HUMALOG SUBQ SCH ×4 (07:10→21:48)
[2019-03-05] MEDS ORDERED: ALDACTONE PO SCH (09:00)
[2019-03-05] MEDS ORDERED: LASIX PO SCH (09:00)
[2019-03-05] MEDS: MIRALAX PO SCH ×3 (10:17→21:48)
[2019-03-05] MEDS: ALDACTONE PO SCH (10:18)
[2019-03-05] MEDS: ALPHAGAN 0.2% OPHTH SOLN BOTH EYES SCH ×3 (10:18→21:49)
[2019-03-05] MEDS: LASIX PO SCH (10:18)
[2019-03-05] MEDS: NORVASC PO SCH (10:18)
[2019-03-05] MEDS: PERIDEX MT SCH ×2 (10:18→21:49)
[2019-03-05] MEDS: ZOFRAN IV PRN (10:19)
[2019-03-05] MEDS: PATIENT'S OWN MED PO SCH (10:19)
--- NOTE | 2019-03-05 19:16 | GASTROENTEROLOGY PROGRESS NOTE ---
DATE: 03/05/2019 SUBJECTIVE: Ms. Irene is a 73-year-old female, sitting in the bed having her breakfast. She has denied any nausea/vomiting and said that she had regular bowel movements. She is still complaining of abdominal pain in the incision area, and mentioned that her urine output was under control as well as the drainage from the ÓSCAR drain site is minimal. OBJECTIVE: Vital Signs: Temperature 97.4 degrees, pulse 77, respirations 20, blood pressure 173/64, oxygen saturation is 95% on 2 L nasal cannula. Weight: The patient's weight is 110 pounds, BMI is 20.1 kg/m2. General: She is alert, oriented x3, in no acute distress. HEENT: Conjunctivae no icterus. PERRL. Neck: Supple. Lungs: Clear to auscultation in the anterior pope. Cardiovascular: Regular rate and rhythm. Abdomen: Mildly distended, soft, tender. Incision in the midline lower quadrant and the lower quadrant of the abdomen. Her ÓSCAR drain has been removed, but they have put a colostomy bag to hold onto the drainage, fluid is serosanguineous, and it is very minimal. Active bowel sounds heard in all 4 quadrants. Extremities: No cyanosis, clubbing, or edema. Pedal pulses 2+ present bilaterally. Neurologic: She is alert, oriented x3. DIAGNOSTIC STUDIES: WBCs are 9.35, RBCs 3.53, hemoglobin 10.9, hematocrit is 32.8, platelet count is 295. Sodium is 137, potassium is 2.7, chloride is 99, carbon dioxide is 27, anion gap is 11, BUN is 4, creatinine 0.5, glucose is 145, calcium is 8.3, total bilirubin is 1.27, AST is 24, ALT is 25, alkaline phosphatase is 205, albumin is 3.0. Chest x-ray showed worsening bilateral lower lobe infiltrates or atelectasis. IMPRESSION: Abdominal pain, nausea/vomiting. Cholecystitis s/p Cholecystectomy CBD s/p ERCP with stent placement Anemia Chronic Hepatitis C on Mavyret regimen. Moderate cirrhosis Ascites Diabetes. Hyperlipidemia. COPD PLAN: The patient's ÓSCAR drain has been taken out, but she is still draining serosanguineous fluid and it is minimal. Nursing staff has placed a colostomy bag to hold the drainage. The patient is on Lasix 20 mg p.o. daily; it has been reduced from 40 mg. She is on Mavyret for her hepatitis C treatment, and we have emphasized to her to continue taking it, even when she is in the hospital. She is on a bowel regimen, MiraLAX twice a day. The patient's liver function tests have been trending down; today it was AST is 24, ALT is 25, alkaline phosphatase is 205. Her hemoglobin is 10.9 and hematocrit is 32.8, it is slightly trending upwards. We will continue to monitor her LFTs and CBCs and BMPs, and follow-up with plan of care per primary care provider. This plan was discussed with Dr. Taylor. Please call us with any further questions or concerns. Dictated by RAINE Mccormack for Colin Taylor MD cc: Colin Taylor MD I have seen and examined the patient myself and I agree with the above plan of care. I have discussed the above plan of care with the patient and all questions were answered. Please call us with any further questions or concerns MTDD
[2019-03-05 19:56] LABS: AGAP 11; ALB/GLOB RATIO 0.9; ALBUMIN 2.7 g/dL (3.5-5.0); ALKALINE PHOSPHATASE 188 U/L (32-104); BUN 5 mg/dL (8-22); CALCIUM 8.8 mg/dL (8.8-10.2); CHLORIDE 97 mmol/L (98-107); COSMO 275; CREATININE 0.6 mg/dL (0.5-0.9); ESTIMATED GFR > 60; GLUCOSE 201 mg/dL (70-104); GOT 23 U/L (10-30); GPT 23 U/L (10-36); POTASSIUM 2.7 mmol/L (3.5-5.1); SODIUM 136 mmol/L (136-145); TCO2 28 mmol/L (25-35); TOTAL BILIRUBIN 1.57 mg/dL (0.20-1.00); TOTAL PROTEIN 5.6 g/dL (6.3-8.3)
--- NOTE | 2019-03-05 21:11 | Diag Imaging Result Doc PS360 ---
EXAM: CT ANGIOGRM PULMONARY ARTERIES INDICATION: chest pain TECHNIQUE: This exam was performed using automated exposure control, adjustment of mA or kV according to patient size, and/or use of iterative reconstruction technique. Thin section axial images and 3-D MIPS were obtained. COMPARISON: None. FINDINGS: There is no evidence of pulmonary embolism. The thoracic aorta is tortuous and there is moderate atherosclerotic calcification. There is no evidence of aortic dissection or aneurysm. There is no cardiomegaly. There is no evidence of significant mediastinal or hilar lymphadenopathy. There is mild pulmonary emphysema, mainly at the lung apices. There are moderate-sized pleural effusions and there is bibasilar atelectasis. There is patchy groundglass consolidation in the lingula, left lung apex, and the right middle lobe indicating pneumonitis. Limited views of the upper abdomen reveals a cirrhotic liver and small volume ascites tracking around the liver. There is stable low dense right hepatic lobe lesion compared to an abdominal CT dated 02/23/2019 that may represent a cyst containing proteinaceous debris. IMPRESSION: 1.Bilateral moderate-sized pleural effusions and bibasilar atelectasis. 2.A few patchy groundglass consolidations involving the left upper lobe and right middle lobe as described. 3.Cirrhotic liver and small volume ascites. 4.No evidence of pulmonary embolism. Electronically signed by Willie Vazquez 03/05/2019 9:09 PM
[2019-03-05] MEDS: LUMIGAN 0.01% OPH SOLUTION BOTH EYES SCH (21:49)
[2019-03-06] MEDS: MIRALAX PO SCH ×3 (01:38→22:49)
[2019-03-06] MEDS: NORCO-7.5 PO PRN ×4 (04:31→22:48)
[2019-03-06 07:20] LABS: BASO# 0.04 X1000 (0.0-0.2); BASO% 0.5 % (0.0-0.8); EOS# 0.19 X1000 (0.0-0.7); EOS% 2.3 % (0.0-10.0); HEMATOCRIT 34.2 % (37.0-47.0); HEMOGLOBIN 11.2 g/dL (12.0-16.0); IMM GRAN# 0.03 X1000 (0.0-0.04); IMM GRAN% 0.4 % (0.0-0.5); LYMPH# 2.51 X1000 (1.2-3.4); LYMPH% 30.3 % (20.5-51.1); MCH 30.8 PG (27-31); MCHC 32.7 g/dL (33-37); MONO# 0.65 X1000 (0.11-0.59); MONO% 7.9 % (1.7-9.3); NEUT# 4.86 X1000 (1.4-6.5); NEUT% 58.6 % (42.2-75.2); PLT 296 X1000 (130-400); RBC 3.64 XMIL (4.2-5.4); RDW 16.1 % (11.5-14.5); WBC 8.28 X1000 (4.8-10.8)
[2019-03-06] MEDS: HUMALOG SUBQ SCH ×4 (07:41→21:27)
[2019-03-06] MEDS: NORVASC PO SCH (09:49)
[2019-03-06] MEDS: LASIX PO SCH (09:49)
[2019-03-06] MEDS: ALDACTONE PO SCH (09:49)
[2019-03-06] MEDS: PERIDEX MT SCH ×2 (09:49→21:37)
[2019-03-06] MEDS: ALPHAGAN 0.2% OPHTH SOLN BOTH EYES SCH ×3 (09:49→16:50)
[2019-03-06] MEDS: PATIENT'S OWN MED PO SCH (09:50)
[2019-03-06 12:34] LABS: BASO# 0.05 X1000 (0.0-0.2); BASO% 0.6 % (0.0-0.8); EOS# 0.07 X1000 (0.0-0.7); EOS% 0.8 % (0.0-10.0); HEMATOCRIT 32.7 % (37.0-47.0); HEMOGLOBIN 10.6 g/dL (12.0-16.0); IMM GRAN# 0.02 X1000 (0.0-0.04); IMM GRAN% 0.2 % (0.0-0.5); LYMPH# 2.05 X1000 (1.2-3.4); LYMPH% 24.2 % (20.5-51.1); MCH 30.7 PG (27-31); MCHC 32.4 g/dL (33-37); MCV 94.8 FL (81-99); MONO# 0.44 X1000 (0.11-0.59); MONO% 5.2 % (1.7-9.3); NEUT# 5.85 X1000 (1.4-6.5); PLT 292 X1000 (130-400); RBC 3.45 XMIL (4.2-5.4); RDW 16.2 % (11.5-14.5); WBC 8.48 X1000 (4.8-10.8)
[2019-03-06 12:46] LABS: INR 1.15; PROTIME 14.9 Seconds (11.0-16.0)
[2019-03-06 12:47] LABS: AGAP 10; ALBUMIN 2.8 g/dL (3.5-5.0); ALKALINE PHOSPHATASE 188 U/L (32-104); BUN 5 mg/dL (8-22); CALCIUM 8.2 mg/dL (8.8-10.2); CHLORIDE 96 mmol/L (98-107); COSMO 274; CREATININE 0.5 mg/dL (0.5-0.9); ESTIMATED GFR > 60; GLUCOSE 186 mg/dL (70-104); GOT 25 U/L (10-30); GPT 22 U/L (10-36); POTASSIUM 2.9 mmol/L (3.5-5.1); SODIUM 136 mmol/L (136-145); TCO2 30 mmol/L (25-35); TOTAL BILIRUBIN 0.76 mg/dL (0.20-1.00); TOTAL PROTEIN 5.5 g/dL (6.3-8.3)
[2019-03-06] MEDS ORDERED: KLOR-CON PO ONE (15:20)
--- NOTE | 2019-03-06 15:21 | GASTROENTEROLOGY PROGRESS NOTE ---
DATE: 03/06/2019 SUBJECTIVE: Ms. Irene is a 73-year-old, female, sitting in bed having her breakfast. She has denied any nausea, vomiting, and said that she did have some regular bowel movements. Her drainage from the ÓSCAR drain site is minimal and serosanguineous. She is still complaining of abdominal pain in the incision area. OBJECTIVE: Vital signs: Temperature 97.7 degrees, pulse is 67, respirations 16, blood pressure 127/70, oxygen saturation 94% on 2 L nasal cannula. Her weight is 110 pounds. BMI is 20.1 kg/m2.. General: She is alert and oriented x3, and in no acute distress. HEENT: Pale conjunctivae. No icterus. PERRL. Neck: Supple. Lungs: Clear to auscultation in the anterior pope. Cardiovascular: Regular rate and rhythm. Abdomen: Mildly distended, tender, incision dry and intact The ÓSCAR drain has been removed, but colostomy bag is placed by nursing staff to hold the drainage. Fluid is serosanguineous and it is minimal. Active bowel sounds heard in all 4 quadrants. Extremities: No cyanosis, clubbing, or edema. Pedal pulses 2+ present bilaterally. Neurologic: She is alert and oriented x3. LABORATORY AND DIAGNOSTIC DATA: WBC is 8.28, RBC is 3.64, hemoglobin is 11.2, hematocrit is 34.2, platelet count is 296,000. Sodium is 136, potassium is 2.7, chloride is 97, carbon dioxide is 28, anion gap is 11, BUN is 5, creatinine is 0.6, calcium 8.8, total bilirubin is 1.57, AST 23, ALT is 23, alkaline phosphatase is 188. The patient's albumin is 2.7. CT angiogram of pulmonary artery showed that she has bilateral moderate-sized pleural effusions and bibasilar atelectasis. Patchy ground-glass consolidations involving the left upper lobe and the right middle lobe. Chronic liver and small volume ascites. No evidence of pulmonary embolism. Chest x-ray showed worsening bilateral lower lobe infiltrates or atelectasis. IMPRESSION: Cholecystitis S/p cholecystectomy CBD S/p ERCP with stent placement Anemia HCV cirrhosis Ascites Diabetes COPD PLAN: The patient still has some minimal serosanguineous drainage from the ÓSCAR site. She is on Lasix 40 mg IV twice a day, bowel regimen, MiraLAX twice a day. The patient is on Mavyret for her hepatitis C, emphasized the importance of continuing the medicine even when she is in the hospital. The patient's liver function tests have been trending downward. Her AST was 23, ALT was 23, alkaline phosphatase was 188. We will continue to monitor her hemoglobin and hematocrit. Her H & H was 11.2 and 34.2. It has trended upwards. We will continue to follow the plan of care per PCP and monitor her LFTs, CBCs, and BMPs. This plan was discussed with Dr. Blanchard. Please call us with any further questions or concerns. Dictated by RAINE Mccormack for Solomon Blanchard MD Physician Attestation I have seen and examined the patient. I have discussed and reviewed the the note by Katie NI and agree with findings and plan as documented. In brief, Ms. Renae Irene is a 73 year old woman with HCV cirrhosis who presented with acute cholecystitis s/p cholecystectomy and distal CBD stricture s/p ERCP with sphincterotomy and stent placement. Her course has been complicated with decompensation of her cirrhosis with ascites draining from ÓSCAR drain; now removed. Her incision is c/d/i without significant abdominal distension. She has been diuresed aggressively and beginning to have contraction alkalosis and rising creatinine. Will stop IV and PO lasix and continue on low dose aldactone. Diuretics can be titrated as outpatient. Continue Mavyret for HCV. Will follow with you. HERNESTO
[2019-03-06 19:37] LABS: AGAP 9; ALBUMIN 2.7 g/dL (3.5-5.0); ALKALINE PHOSPHATASE 180 U/L (32-104); BUN 8 mg/dL (8-22); CALCIUM 8.4 mg/dL (8.8-10.2); CHLORIDE 94 mmol/L (98-107); COSMO 271; CREATININE 0.7 mg/dL (0.5-0.9); ESTIMATED GFR > 60; GLUCOSE 204 mg/dL (70-104); GOT 24 U/L (10-30); GPT 21 U/L (10-36); POTASSIUM 2.9 mmol/L (3.5-5.1); SODIUM 133 mmol/L (136-145); TCO2 30 mmol/L (25-35); TOTAL BILIRUBIN 0.87 mg/dL (0.20-1.00); TOTAL PROTEIN 5.4 g/dL (6.3-8.3)
[2019-03-06] MEDS ORDERED: LASIX IV SCH (21:00)
[2019-03-06] MEDS: LUMIGAN 0.01% OPH SOLUTION BOTH EYES SCH (21:37)
[2019-03-06] MEDS: KLOR-CON PO SCH (21:41)
[2019-03-07] MEDS: NORCO-7.5 PO PRN ×4 (04:22→22:09)
[2019-03-07] MEDS: HUMALOG SUBQ SCH ×4 (06:44→22:11)
[2019-03-07 07:19] LABS: BASO# 0.09 X1000 (0.0-0.2); EOS# 0.21 X1000 (0.0-0.7); EOS% 2.4 % (0.0-10.0); HEMATOCRIT 34.6 % (37.0-47.0); HEMOGLOBIN 11.3 g/dL (12.0-16.0); IMM GRAN# 0.02 X1000 (0.0-0.04); IMM GRAN% 0.2 % (0.0-0.5); LYMPH# 2.34 X1000 (1.2-3.4); LYMPH% 26.7 % (20.5-51.1); MCHC 32.7 g/dL (33-37); MCV 95.1 FL (81-99); MONO# 0.71 X1000 (0.11-0.59); MONO% 8.1 % (1.7-9.3); MPV 10.3 FL (7.4-10.4); NEUT% 61.6 % (42.2-75.2); PLT 304 X1000 (130-400); RBC 3.64 XMIL (4.2-5.4); RDW 16.3 % (11.5-14.5); WBC 8.77 X1000 (4.8-10.8)
[2019-03-07] MEDS: NORVASC PO SCH (08:57)
[2019-03-07] MEDS: ALDACTONE PO SCH (08:57)
[2019-03-07] MEDS: PATIENT'S OWN MED PO SCH (08:57)
[2019-03-07] MEDS: PERIDEX MT SCH ×2 (08:57→21:59)
[2019-03-07] MEDS: KLOR-CON PO SCH ×2 (08:57→21:59)
[2019-03-07] MEDS: ALPHAGAN 0.2% OPHTH SOLN BOTH EYES SCH ×3 (08:58→16:24)
[2019-03-07] MEDS: MIRALAX PO SCH ×2 (08:58→22:11)
[2019-03-07 10:53] LABS: AGAP 12; ALBUMIN 3.1 g/dL (3.5-5.0); ALKALINE PHOSPHATASE 206 U/L (32-104); BUN 7 mg/dL (8-22); CALCIUM 8.7 mg/dL (8.8-10.2); CHLORIDE 95 mmol/L (98-107); COSMO 276; CREATININE 0.6 mg/dL (0.5-0.9); ESTIMATED GFR > 60; GLUCOSE 142 mg/dL (70-104); GOT 28 U/L (10-30); GPT 23 U/L (10-36); POTASSIUM 2.9 mmol/L (3.5-5.1); SODIUM 138 mmol/L (136-145); TCO2 31 mmol/L (25-35); TOTAL BILIRUBIN 0.86 mg/dL (0.20-1.00); TOTAL PROTEIN 6.3 g/dL (6.3-8.3)
--- NOTE | 2019-03-07 10:57 | PROVIDER PROGRESS NOTE ---
Progress Note S: No acute overnight events. Patient reports continue polyuria with IV lasix and bilateral leg burning. No N/V/F, CP, SOB, abdominal pain. Tolerating PO. +BMs. No confusion O: Last Vital Signs Temp 98.6 F 03/07/19 08:00 Pulse 91 H 03/07/19 08:33 Resp 18 03/07/19 08:33 BP 154/63 03/07/19 08:00 Pulse Ox 98 03/07/19 08:33 Height 5 ft 2 in Weight 110 lb GEN: awake, alert, NAD HEENT: anicteric, MMM NECK: supple, no JVD PULM: CTAB, no wheezing CV: RRR, no murmurs ABD: incision with haris c/d/i, ÓSCAR drain site RLQ has ostomy bag with ascites fluid EXT: no cce, WWP, no swelling NEURO: nonfocal; no asterixis LABS: 03/07/19 03/07/19 06:12 06:34 WBC 8.77 Hgb 11.3 L Plt Count 304 POC Glucose 139 H MsNi Irene is a 73 year old woman with HCV cirrhosis who presented with acute cholecystitis s/p cholecystectomy and distal CBD stricture s/p ERCP with sphincterotomy and stent placement. Her course has been complicated with decompensation of her cirrhosis with ascites draining from ÓSCAR drain; now removed. Her incision is c/d/i without significant abdominal distension. She has been diuresed aggressively and beginning to have contraction alkalosis and rising creatinine yesterday. Stopped lasix. On low dose aldactone. Continue Mavyret for HCV. Will follow with you # Decompensated HCV cirrhosis - Ascites: on aldactone 20mg daily; ostomy over ÓSCAR site draining ascites fluid 300mL yesterday; may need surgery to place suture to minimize output - PSE: none prior - HCC screening: no hepatoma on recent imaging - EV: no varices on recent EGD # Biliary stricture s/p ERCP with sphincterotomy and stent placement; will need removal in 4-[address] Garay # Anemia: no overt bleeding # Acute cholecystitis: s/p open CCY; continue post-operative care; OOB, PT # HCV: continue Mavyret therapy # Hypokalemia: replete prn # Hyponatremia: may need to discontinue diuretics if worsens as I suspect she may have been over-diuresed Will follow with you. Please call with questions
[2019-03-07] MEDS ORDERED: KLOR-CON PO ONE (17:08)
--- NOTE | 2019-03-07 17:50 | PROGRESS NOTE ---
DATE: 03/07/2019 SUBJECTIVE: She is doing okay. No major complaints except for abdominal pain with her incisions. OBJECTIVE: Blood pressure 155/53, heart rate of 71, respiratory 18, temperature 98.3 degrees, 95% on 2 L. Cardiovascular: Regular rate and rhythm. Pulmonary: Bilateral breath sounds clear to auscultation. GI: Was soft, nontender, distended with some ascites. There is still some drainage. LABORATORY DATA: White count is 8, hemoglobin and hematocrit 11, 34, platelets 304,000, potassium 2.9. PROBLEM LIST: 1. Cholecystitis, cholecystectomy, papillary obstruction. She seems to be doing okay from that standpoint. Continue to monitor. 2. Hepatitis C cirrhosis with some ascites. She has been on Lasix and Aldactone. Dr. Blanchard is concerned about causing dehydration and being too negative so I will defer to him about the diuretics. We stopped them, that being said she does have bilateral moderate pleural effusions and very minimal ascites so will keep an eye on that. We do need to work on getting her up and around but she did do pretty well with PT apparently. DISPOSITION: Patient is requesting to go to rehab. She does not feel strong enough to go home so we are going to continue to monitor her closely and anticipate rehab on Saturday hopefully, we are waiting on insurance approval so will see how things look on Saturday. cc: Rey Felton MD
[2019-03-07] MEDS: POTASSIUM CHLORIDE 20 MEQ/SWI 20 MEQ/100 ML IVPB IV SCH ×2 (18:42→23:52)
[2019-03-07] MEDS: LUMIGAN 0.01% OPH SOLUTION BOTH EYES SCH (21:59)
[2019-03-07] MEDS ORDERED: NS 500 ML ONE (23:50)
[2019-03-08] MEDS: NORCO-7.5 PO PRN ×4 (04:46→23:22)
[2019-03-08 06:45] LABS: BASO# 0.07 X1000 (0.0-0.2); BASO% 0.6 % (0.0-0.8); EOS# 0.16 X1000 (0.0-0.7); EOS% 1.5 % (0.0-10.0); HEMATOCRIT 36.6 % (37.0-47.0); HEMOGLOBIN 11.7 g/dL (12.0-16.0); LYMPH% 22.8 % (20.5-51.1); MCV 97.1 FL (81-99); MONO# 0.82 X1000 (0.11-0.59); MONO% 7.5 % (1.7-9.3); MPV 10.3 FL (7.4-10.4); NEUT# 7.42 X1000 (1.4-6.5); NEUT% 67.6 % (42.2-75.2); PLT 299 X1000 (130-400); RBC 3.77 XMIL (4.2-5.4); RDW 16.7 % (11.5-14.5); WBC 10.97 X1000 (4.8-10.8)
[2019-03-08] MEDS: HUMALOG SUBQ SCH ×5 (06:50→21:30)
[2019-03-08 07:02] LABS: AGAP 10; BUN 7 mg/dL (8-22); CALCIUM 8.8 mg/dL (8.8-10.2); CHLORIDE 101 mmol/L (98-107); COSMO 276; CREATININE 0.6 mg/dL (0.5-0.9); ESTIMATED GFR > 60; GLUCOSE 149 mg/dL (70-104); MAGNESIUM 1.7 mg/dL (1.5-2.7); POTASSIUM 5.3 mmol/L (3.5-5.1); SODIUM 138 mmol/L (136-145); TCO2 27 mmol/L (25-35)
[2019-03-08] MEDS: ZOFRAN IV PRN (07:48)
[2019-03-08] MEDS: KLOR-CON PO SCH (09:52)
[2019-03-08] MEDS: ALDACTONE PO SCH (09:52)
[2019-03-08] MEDS: MIRALAX PO SCH ×2 (09:53→21:30)
[2019-03-08] MEDS: ALPHAGAN 0.2% OPHTH SOLN BOTH EYES SCH ×3 (09:53→17:37)
[2019-03-08] MEDS: PATIENT'S OWN MED PO SCH (09:53)
[2019-03-08] MEDS: PERIDEX MT SCH ×2 (09:53→21:25)
[2019-03-08] MEDS: NORVASC PO SCH (09:53)
--- NOTE | 2019-03-08 16:57 | PROGRESS NOTE ---
DATE: 03/08/2019 SUBJECTIVE: The patient has no major complaints. OBJECTIVE: Blood pressure 120/61, heart rate of 73, respiratory rate 18, temperature 98.2 degrees, 97% on 2 L. Cardiovascular: Regular rate and rhythm. Pulmonary: Bilateral breath sounds clear to auscultation. GI was soft, nontender, nondistended. Bowel sounds were positive. White count is 10, hemoglobin and hematocrit 11 and 36, platelets 299,000. Potassium 5.3. PROBLEM LIST: 1. Status post cholecystectomy, biliary stent. She is doing okay. 2. Hepatitis C, cirrhosis with some decompensation as far as ascites. We will continue to monitor. Holding diuretics because we are concerned that she is getting dehydrated. Her current BUN and creatinine are 7 and 0.6. Now granted, her baseline is 0.3 and 0.5, and her potassium today is a little bit up at 5.3, but she has been getting fairly extensive supplementation. I think there is a case here that she may be intravascularly depleted but she is still third-spacing. She has ascites. She has bilateral pleural effusions which are described as moderate, so my intention with diuretics was to help get some of that fluid off rather than over-diurese her. We may have to give her albumin in addition to the diuretics. For right now, we will just monitor her. She is on Aldactone. I will get a chest x-ray tomorrow. DISPOSITION: We are looking at rehab. Hopefully, that will work out tomorrow. cc: Rey Felton MD
[2019-03-08] MEDS: LUMIGAN 0.01% OPH SOLUTION BOTH EYES SCH (21:25)
--- NOTE | 2019-03-08 23:40 | PROVIDER PROGRESS NOTE ---
Progress Note S: No acute overnight events. Patient reports some abdominal discomfort with eating. No N/V/F, CP, SOB, rectal bleeding, or melena. +BMs O: Last Vital Signs Temp 98.3 F 03/08/19 19:56 Pulse 57 L 03/08/19 19:56 Resp 28 H 03/08/19 19:56 BP 114/64 03/08/19 19:56 Pulse Ox 100 03/08/19 19:56 Height 5 ft 2 in Weight 110 lb GEN: awake, alert, NAD HEENT: anicteric, MMM NECK: supple, no JVD PULM: CTAB, no wheezing CV: RRR, no murmurs ABD: incision with haris c/d/i, ÓSCAR drain site RLQ has ostomy bag with ascites fluid EXT: no cce, WWP, no swelling NEURO: nonfocal; no asterixis LABS: 03/08/19 03/08/19 05:49 05:49 WBC 10.97 H Hgb 11.7 L Plt Count 299 Sodium 138 Potassium 5.3 H D Chloride 101 Carbon Dioxide 27 BUN 7 L Creatinine 0.6 Glucose 149 H MsNi Irene is a 73 year old woman with HCV cirrhosis who presented with acute cholecystitis s/p cholecystectomy and distal CBD stricture s/p ERCP with sphincterotomy and stent placement. Her course has been complicated with decompensation of her cirrhosis with ascites draining from ÓSCAR drain; now removed. Her incision is c/d/i without significant abdominal distension. Diuretics have been peeled back given suspected volume depletion. Continue Mavyret for HCV. # Decompensated HCV cirrhosis - Ascites: on aldactone 20mg daily; ostomy over ÓSCAR site draining ascites; may need surgery to place suture to minimize output - PSE: none prior - HCC screening: no hepatoma on recent imaging - EV: no varices on recent EGD # Biliary stricture s/p ERCP with sphincterotomy and stent placement; will need removal in 4-[address] Garay # Anemia: no overt bleeding # Acute cholecystitis: s/p open CCY; continue post-operative care; OOB, PT # HCV: continue Mavyret therapy # GERD: started protonix 40mg PO once daily Will follow with you. Please call with questions
[2019-03-09] MEDS: NORCO-7.5 PO PRN ×2 (05:23→10:53)
[2019-03-09] MEDS: ZOFRAN IV PRN (06:08)
[2019-03-09] MEDS: HUMALOG SUBQ SCH ×2 (06:50→12:48)
[2019-03-09] MEDS ORDERED: PROTONIX PO SCH (07:00)
[2019-03-09 07:03] LABS: BASO# 0.09 X1000 (0.0-0.2); BASO% 0.8 % (0.0-0.8); EOS% 1.9 % (0.0-10.0); HEMATOCRIT 35.9 % (37.0-47.0); HEMOGLOBIN 11.3 g/dL (12.0-16.0); IMM GRAN# 0.02 X1000 (0.0-0.04); IMM GRAN% 0.2 % (0.0-0.5); LYMPH# 2.96 X1000 (1.2-3.4); LYMPH% 27.7 % (20.5-51.1); MCHC 31.5 g/dL (33-37); MCV 98.6 FL (81-99); MONO# 0.74 X1000 (0.11-0.59); MONO% 6.9 % (1.7-9.3); MPV 10.4 FL (7.4-10.4); NEUT# 6.67 X1000 (1.4-6.5); NEUT% 62.5 % (42.2-75.2); PLT 291 X1000 (130-400); RBC 3.64 XMIL (4.2-5.4); RDW 16.8 % (11.5-14.5); WBC 10.68 X1000 (4.8-10.8)
--- NOTE | 2019-03-09 07:03 | Diag Imaging Result Doc PS360 ---
CHEST-PORTABLE - 03/09/2019 INDICATION: dyspnea COMPARISON: 03/05/2019 FINDINGS: Stable bilateral lower lobe infiltrates and probably small pleural effusions. Heart size remains grossly normal. Stable pulmonary vascular congestion. IMPRESSION: No change from prior. Electronically signed by Jaden No 03/09/2019 7:01 AM
[2019-03-09 07:22] LABS: AGAP 10; BUN 8 mg/dL (8-22); CALCIUM 8.2 mg/dL (8.8-10.2); CHLORIDE 100 mmol/L (98-107); COSMO 277; CREATININE 0.6 mg/dL (0.5-0.9); ESTIMATED GFR > 60; GLUCOSE 160 mg/dL (70-104); SODIUM 138 mmol/L (136-145); TCO2 28 mmol/L (25-35)
[2019-03-09] MEDS: PERIDEX MT SCH (09:08)
[2019-03-09] MEDS: NORVASC PO SCH (09:08)
[2019-03-09] MEDS: ALDACTONE PO SCH (09:08)
[2019-03-09] MEDS: ALPHAGAN 0.2% OPHTH SOLN BOTH EYES SCH ×2 (09:09→12:48)
[2019-03-09] MEDS: MIRALAX PO SCH ×2 (09:09→09:11)
[2019-03-09] MEDS: PATIENT'S OWN MED PO SCH (09:13)
[2019-03-09] MEDS ORDERED: CALMOSEPTINE OINTMENT TOP PRN (09:30)
[2019-03-09 12:05] VITALS: BP 118/61
--- NOTE | 2019-03-09 12:34 | GASTROENTEROLOGY PROGRESS NOTE ---
DATE: 03/09/2019 SUBJECTIVE: Ms. Irene 73 year old female sitting in a bed complaining of breakfast not coming on time. She has denied any nausea, vomiting, or diarrhea and mentioned having one one bowel movement yesterday and it was regular. OBJECTIVE: Vital Signs: Temperature 98 degrees, pulse 78, respirations 19, blood pressure 168/67, and oxygen saturation 100% on room air. Weight is 110 pounds. BMI is 20.1 kg per m squared. General: She is alert and oriented x3, and in no acute distress. HEENT: Pale conjunctivae. No icterus. PERRL. Neck: Supple. Lungs: Clear to auscultation in the anterior pope. Cardiovascular: Regular rate and rhythm. Abdomen: Mildly distended and tender in the incisional area. Incision dry and intact. Her ÓSCAR drain has been removed, but there is still a little bit of clear fluid draining, and it is minimal. They have put a colostomy bag just to hold on to the drainage. Active bowel sounds heard in all 4 quadrants. Extremities: No cyanosis, clubbing, or edema. Pedal pulses 2+ present bilaterally. Neuro: Alert and oriented x3. LABORATORY DATA: WBCs are 10.68, RBCs 3.64, hemoglobin 11.3, hematocrit 35.9, and platelet count 291,000. Sodium 138, potassium 5.0, chloride is 100, carbon dioxide is 20. Anion gap is 10 BUN is 8, creatinine is 0.6. Glucose is 160. Potassium is 8.2. IMPRESSION AND PLAN: 1. Cholecystitis status post cholecystectomy. 2. Common bile duct, status post ERCP with stent placement. 3. Anemia. 4. Chronic Hepatitis C 5. Cirrhosis. 6. Ascites. 7. Anemia 8. Biliary stricture 9. GERD 10. Diabetes type 2 11. COPD PLAN: We will continue to follow the current plan of care. Patient has clear fluid draining from the ÓSCAR drain site and minimal quantity She is on MiraLAX for bowel regimen, Protonix 40 mg daily p.o. daily. She is on Mavyret for her hepatitis C. Encouraged patient to continue taking Mavyret regularly even when she is in the hospital. We have discontinued her Lasix, and the patient is currently on Aldactone 25 mg p.o. We will continue to monitor her CBC and BMP, and follow the plan of care per PCP. This plan was discussed with Dr. Taylor. Please call us for any further questions or concerns. Dictated by RAINE Mccormack for Colin Taylor MD cc: Colin Taylor MD I have seen and examined the patient myself and I agree with the above plan of care. I have discussed the above with the patient and all questions were answered. Please call us with any further questions. HERNESTO
--- NOTE | 2019-03-09 14:49 | DISCHARGE SUMMARY ---
ADMISSION DATE: 02/23/2019 DISCHARGE DATE: 03/09/2019 DIAGNOSES: 1. Acute cholecystitis, status post cholecystectomy. 2. Biliary stricture, status post endoscopic retrograde cholangiopancreatography with sphincterotomy and stent placement that will need removal in 4 to [address] Garay. 3. Ascites. 4. Decompensated hepatitis C virus cirrhosis, currently on Mavyret therapy. 5. Anemia. 6. Gastroesophageal reflux disease. 7. Bilateral pleural effusions, currently on diuretics. 8. History of chronic obstructive pulmonary disease. 9. Diabetes mellitus. DIAGNOSTICS: 1. On 02/23/2019, CT of the abdomen and pelvis revealed markedly distended gallbladder with trace pericholecystic fluid, dilated common bile duct, and dilated pancreatic duct. 2. On 02/24/2019, chest x-ray revealed atelectasis versus pneumonia in the right base with pleural thickening versus loculated effusion on the right. 3. 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 Heterogeneous free fluid in the subphrenic space and cirrhosis. 4. Chest x-ray on 03/09/2019 revealed stable bilateral lower lobe infiltrates and probably small pleural effusions. Heart size remains grossly normal. Stable pulmonary vascular congestion. CONSULTS: 1. Dr. Layo Ojeda, general surgery. 2. Dr. Fco Garay, gastroenterology. PROCEDURES: 1. On 02/24/2019, laparoscopic cholecystectomy. 2. On 02/26/2019, ERCP, endoscopic sphincterotomy, endoscopic stent placement. HOSPITAL COURSE: Ms. Irene presented to the emergency room complaining of right upper quadrant pain and nausea. She was found to have acute cholecystitis. She underwent cholecystectomy on 02/24/2019. MRCP showed a biliary obstruction. She subsequently underwent an ERCP with sphincterotomy and stent placement on the . A papillary stricture and juxta-ampullary diverticulum were noted but there was no clear evidence of malignancy. After stent placement, LFTs have normalized. She does have chronic hepatitis C with cirrhosis. We did continue her hepatitis C treatment throughout the hospitalization. Blood sugars remained under good control. Electrolytes were followed and repleted as appropriate. The ÓSCAR drain was removed and she has continued with serosanguineous drainage from that ÓSCAR site. It continues to drain ascites. There is an ostomy appliance in place to protect skin surrounding. She was managed with Lasix and Aldactone for her ascites. There was a concern about her being dehydrated. Therefore, Lasix was discontinued, Aldactone was decreased to 20 mg daily. She continues to be weak and thankfully she is ready to be discharged to rehab today. DISCHARGE VITAL SIGNS: Blood pressure is 118/61, with a heart rate of 65, respirations are 18, temperature is 98.2 degrees oral, with O2 saturations at 100%. DISCHARGE PHYSICAL EXAMINATION: Cardiovascular: Regular rate and rhythm. S1 and S2 appreciated. Extremities: She has no lower extremity edema. Calves are nontender bilateral, with peripheral pulses palpable x4 extremities. Pulmonary: Breath sounds are clear with no increased work of breathing noted. Chest rises and falls symmetric with respirations. Gastrointestinal: Abdomen is large, nondistended, with bowel sounds in all 4 quadrants. ÓSCAR drain right has ostomy bag with ascites fluid noted. Neurologic: She is alert and oriented. Skin: Warm and dry. DISCHARGE MEDICATIONS: 1. Aldactone 25 mg p.o. daily. 2. MiraLAX 17 g p.o. b.i.d. 3. Pantoprazole 40 mg p.o. daily. 4. Metformin 500 mg p.o. b.i.d. 5. [place] 7.5 q.6 hours p.r.n., prescription for #25 written. 6. Gabapentin 600 mg p.o. at bedtime. 7. Flexeril 10 mg p.o. at bedtime. 8. Aspirin 81 mg p.o. daily. 9. Norvasc 10 mg p.o. daily. 10. Alphagan 0.1% ophthalmic solution 1 drop to both eyes t.i.d. 11. Lumigan 5 mL drops 1 drop to both eyes at bedtime FOLLOWUP: 1. Dr. Layo Ojeda as directed. 2. Dr. Garay in 4 to 6 weeks to discuss stent removal. She is being discharged to [facility] in stable condition. TIME SPENT: This is a greater than 30 minute discharge. Dictated by RAINE Odonnell for Rey Felton MD cc: RAINE Odonnell MD
== END 2019-03-09 15:45 | DRG 417 ==
LOC: P.ED 08:49 → SUATTDRO 15:43 → 4N 15:43
PROVIDERS: ATTEND Internal Medicine
PROC: EN.ERCP (2019-02-26 13:45)